=== PATIENT | female | born 1960 | race Caucasian/White ===

== ENCOUNTER 2019-08-13 03:31 | Outpatient (CLI) | payer MEDICAID, SELFPAY ==
[2019-08-13 14:10] LABS: HCT 42.9 % (36.0-46.0); HGB 13.9 g/dL (12.0-15.5); Mean Corp. HGB Concentration 32.4 g/dL (32.0-36.0); Mean Corpuscular Hemoglobin 25.5 pg (27.0-33.0); Mean Corpuscular Volume 78.7 fL (80-95); Mean Platelet Volume 9.2 fL (8.0-11.0); Platelet Count 281 x1000/uL (130-400); RBC 5.45 m/cumm (4.00-5.20); RBC Distribution Width 15.2 % (11.7-14.6); White Blood Cell Count 9.36 k/cumm (4.4-10.8)
[2019-08-13 14:32] LABS: Hemoglobin A1C 9.5 % (3.8-5.6)
[2019-08-13 16:55] LABS: ALT 42 U/L (14-59); AST 23 U/L (15-37); Albumin 3.6 g/dL (3.4-5.0); Alkaline Phosphatase 90 U/L (46-116); Anion Gap 7.2 mmol/L (3-11); BUN 20 mg/dL (7-18); Bilirubin, Total 0.4 mg/dL (0.2-1.0); CO2 28.8 mmol/L (21.0-32.0); CREATININE 0.99 mg/dL (0.55-1.02); Calcium 9.3 mg/dL (8.5-10.1); Calculated LDL 222 mg/dL (<100); Chloride 103 mmol/L (98-107); Cholesterol 281 mg/dL (<200); Estimated GFR 57.22 (mL/min/1.73m2); Glucose 164 mg/dL (74-106); HDL Cholesterol 34 mg/dL (40-60); Potassium 4.2 mmol/L (3.5-5.1); Sodium 139 mmol/L (136-145); Total Protein 7.6 g/dL (6.4-8.2); Triglyceride 126 mg/dL (<150)
[2019-08-14 12:04] LABS: Hepatitis B Surface Ag Negative (Negative)
[2019-08-14 13:22] LABS: HIV-1/2 Ag & Ab Screen Negative (Negative); Hep A Total Ab w Rflx IgM Negative (Negative); Hep B Core Antibody Negative (Negative)
[2019-08-14 13:35] LABS: Hepatitis C Ab w Rflx HCV PCR Reactive (Negative)
[2019-08-17 15:17] LABS: HCV RNA Qualitative Detected (Undetected)
== END 2019-08-13 03:51 ==
DX: E11.9 Type 2 diabetes mellitus without complications (principal); B19.20 Unspecified viral hepatitis C without hepatic coma; Z79.4 Long term (current) use of insulin; Z11.4 Encounter for screening for human immunodeficiency virus [HIV]
CPT/HCPCS: 80053; 80061; 85027; 86704; 86709; 86803; 87340; 87389; 87522; 83036

== ENCOUNTER 2019-08-17 15:54 | Outpatient (CLI) | payer MEDICAID, SELFPAY ==
--- NOTE | 2019-08-17 | DI.MAMMO_ITS ---
EXAM: MAMMO SCREENING CLINICAL HISTORY: SCREENING, Z12.39 TECHNIQUE: Mammograms were interpreted according to the usual protocol including computer analysis w [employer] CAD system, tomosynthesis and C-view imaging. COMPARISON: FINDINGS: The breasts are of moderate density with fairly symmetrical distribution of fibroglandular tissue. N o dominant mass or clumped microcalcification is identified in either breast. Today's examination is a baseline examination. IMPRESSION: No specific evidence of malignancy at this time. Routine screening examinations are suggested at yea rly intervals in this age group according to the ACS ACR guidelines. BI-RADS Cat 1 - Negative: Breast Density - Category B - Scattered areas of fibroglandular density:
== END 2019-08-17 16:14 ==
PROVIDERS: Visit Provider Nurse Practitioner Family
DX: Z12.31 Encounter for screening mammogram for malignant neoplasm of breast (principal)
CPT/HCPCS: 77063; 77067

== ENCOUNTER 2019-09-16 17:55 | Outpatient (REF) | payer MEDICAID, SELFPAY ==
[2019-09-20 05:19] LABS: SARS-CoV-2 RNA Undetected (Undetected); SARS-CoV-2 Specimen Source Nasopharynx
== END 2019-09-16 18:15 ==
LOC: NCHCN 17:55
PROVIDERS: PCP Nurse Practitioner Family; Visit Provider Nurse Practitioner Family
DX: Z20.828 Contact with and (suspected) exposure to other viral communicable diseases (principal)
CPT/HCPCS: U0003

== ENCOUNTER 2019-10-13 12:02 | Emergency (ER) | payer MEDICAID, SELFPAY | END 2019-10-13 12:22 | PROVIDERS: PCP Nurse Practitioner Family | DX: Z53.21 Procedure and treatment not carried out due to patient leaving prior to being seen by health care provider (principal) ==

== ENCOUNTER 2019-10-22 07:32 | Inpatient (IN) | payer MEDICAID, SELFPAY ==
[2019-10-22] VITALS (8 sets, daily range): BP systolic 135–163; BP diastolic 53–94; PULSE 78–89; RESP 16–19; TEMP 36.3–37.4; O2SAT 93–98
[2019-10-22] MEDS: Normal Saline 1,000 ML 1000 ML IV (08:29)
[2019-10-22] MEDS: Dextrose 50%-Water 25 GM/50 ML SYR IVP (08:30)
--- NOTE | 2019-10-22 08:30 | DI.RAD_ITS ---
EXAM: XR HIP LT COMPLETE AP PELVIS CLINICAL HISTORY: History of spacer, pain, weakness TECHNIQUE: COMPARISON: CR RT HIP COMPLETE AP PELVIS from 04/29/2014 FINDINGS: Two views were obtained. There is hip joint replacement in position on the left. Note is made of hi gh density material which may be osteophytic or which could represent cement projected superior to th e greater trochanter. If there is a clinical suspicion of disruption of the acetabular component, ad ditional evaluation with CT may be considered. This finding is new since prior radiographs of 2014. Moderate degenerative changes of the right hip noted. IMPRESSION:
[2019-10-22 08:32] LABS: Abs Immature Grans 0.04 10^3/uL (0.0-0.06); Absolute Basophil Count 0.04 10^3/uL (0.0-0.2); Absolute Eosinophil Count 0.02 10^3/uL (0.0-0.7); Absolute Lymphocyte Count 1.92 10^3/uL (1.2-3.4); Absolute Monocyte Count 0.73 10^3/uL (0.1-0.8); Basophils % 0.3; Eosinophils % 0.2; HCT 46.4 % (36.0-46.0); HGB 14.5 g/dL (11.2-15.7); Immature Grans % 0.3; MCH 25.1 pg (27.0-33.0); MCHC 31.3 % (32.0-36.0); MCV 80.3 fL (80-95); MPV 9.4 fL (8.0-11.0); Monocytes % 6.1; Neutrophils % 77.1; Nucleated RBC 0 %; Platelet Count 228 10^3/uL (130-400); RBC 5.78 10^6/uL (3.93-5.22); RDW 14.6 % (11.7-14.6); RDW-SD 42.4 fL; WBC 11.97 10^3/uL (4.4-10.8)
[2019-10-22 08:38] LABS: Absolute Neutrophil Count 9.23 10^3/uL (1.2-6.7)
--- NOTE | 2019-10-22 08:45 | DI.CT_ITS ---
EXAM: CT LOWER EXTREMITY LT WO CLINICAL HISTORY: Question of fracture on plain films TECHNIQUE: COMPARISON: No exams were available for comparison FINDINGS: CT examination of the left hip was performed without contrast administration. There is a hip joint r eplacement position. There are multiple fragments of high attenuation material which appear to repre sent fragments of cement probably from femoral component of the prosthesis. The largest fragment jane sures about 30 x 14 millimeters in diameter on coronal imaging and is located superior and medial to the greater trochanter. IMPRESSION: Fragmentation of cement material as described above which lies predominantly in the soft tissue super ior to the femoral neck region.
[2019-10-22 08:55] LABS: ALT 45 U/L (14-59); AST 56 U/L (15-37); Albumin 3.5 g/dL (3.4-5.0); Alkaline Phosphatase 85 U/L (46-116); Anion Gap 9.1 mmol/L (3-11); BUN 14 mg/dL (7-18); Bilirubin, Total 0.4 mg/dL (0.2-1.0); CO2 28.9 mmol/L (21.0-32.0); CREATININE 0.76 mg/dL (0.55-1.02); Calcium 9.2 mg/dL (8.5-10.1); Chloride 103 mmol/L (98-107); Glucose 68 mg/dL (74-106); Potassium 3.4 mmol/L (3.5-5.1); Sodium 141 mmol/L (136-145)
[2019-10-22 08:56] LABS: Creatine Kinase 1857 U/L (26-192)
[2019-10-22] MEDS: Buprenorphine/Naloxone 8 mg/2 mg FILM 1 EACH SL (09:04)
--- NOTE | 2019-10-22 09:41 | W.ED.GENAD ---
Discharge Plan Disposition Patient Disposition: OTHER Condition: Serious Discharge Details Chief Complaint: Orthopedic Clinical Impression: Rhabdomyolysis, Weakness, Prosthetic hip implant failure Primary Care Provider: Mary Lou Maddox ED Provider: Min Faulkner Home Meds and New Rx's Prescriptions: No Action insulin aspart U-100 [Novolog PenFill U-100 Insulin] 100 UNIT/ML cartridge 5 units Sub-Q AC Qty: 9 RF: 0 Lantus U-100 Insulin 100 UNIT/ML solution 40 units Sub-Q HS RF: 0 lisinopril 20 MG tablet 20 mg DAILY RF: 0 albuterol sulfate [Ventolin HFA] 60 PUFF HFA aerosol inhaler 2 puff PRN PRNRF: 0 furosemide 20 MG tablet 10 mg PO DAILY RF: 0 gabapentin 300 MG capsule 600 mg PO BID RF: 0 prednisone 20 MG tablet 60 mg PO DAILY 4 Days RF: 0 buprenorphine-naloxone [Suboxone] 8-2 mg Film 1 film SUBLINGUAL DAILY RF: 0 Medical Decision Making This is a 59-year-old female with a history of diabetes, current smoker, hypertension, hyperlipidemia, depression, left spacer, presenting to the ER via EMS for evaluation. She reports that last night her left leg gave out, she slid to the ground but did not fall to the ground. Was too weak to get off the ground, her housemate was unable to help her. She laid on the floor all night, attempted to get up again in the morning but was unsuccessful so subsequently called EMS. She denies recent illness or trauma. She denies headache, visual changes, neck pain, chest pain, shortness of breath, abdominal pain, nausea, vomiting, numbness, tingling, focal weakness. Fingerstick glucose was 75. Patient reports that she has not eaten this morning and she is quite hungry. Clinically she does appear dry. We will give an amp of glucose and then give her a liter of IV fluid. Given her presentation will obtain CBC, CMP, urinalysis, CK for potential rhabdomyolysis as she was lying on the ground all night. Will obtain x-ray of her left hip and pelvis for further evaluation as well. Patient did not take her Suboxone this morning. Suboxone ordered Laboratory values reveal a white count of 11.97 hemoglobin 14.5 hematocrit 46.4 platelet count 220. Sodium 141 potassium 3.4 creatinine 0.76 with a GFR greater than 60. Glucose was 68. As above, patient received an amp of dextrose. Subsequent serial glucose reveals levels in the 200s and 100s. She subjectively reports feeling less weak. LFTs reveal an AST of 56. Urinalysis is clear, small blood, 5-10 red cells but no obvious infection. Patient given a second liter of saline at 150/h as her CPK was elevated at over 1800. X-ray of left hip and pelvis read by radiology as the hip joint replacement is in position on the left. High density material which may be osteophytic or which could represent cement projected superior in the greater trochanter. Consider CT. Given the x-ray findings, will obtain a CT. CT reveals fragmentation of cement material but no obvious bony fracture. Patient was trial ambulated with assistance and using a cane, she did not do well, was unsteady, could not support herself. Did complain of increased left hip pain. I discussed the case with Dr. Bravo who also had a conversation with Dr. Rodriguez. 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 This procedure is something that will need higher level of care. I was able to speak with the patient's orthopedic at [facility], Dr. Nayak. Images were pushed and he was able to compare the images from today versus images at his facility more recently. There was no significant change. 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 He has tried multiple times set her up for a full revision however she has been noncompliant, not active in her own care plan, and until then he will not operate. He does not believe that she requires transfer to his facility as there is no clear indication for emergent orthopedic surgery. After multiple phone calls to specialist, it appears as though the patient does not require emergent surgery for her left hip revision today. With that being said she continues to have generalized weakness, is unsteady using a walker, and does continue to have left hip pain. Laboratory values revealed rhabdomyolysis. I will discuss the case with our hospitalist team for admission. Likely IV hydration, repeat CK, potential PT, and even long-term care placement or rehab may be appropriate. This may allow her to become healthy enough to have the orthopedic surgery. I discussed the case with Dr. Shaw who was agreeable to admission and will write orders. Covid test obtained Of note, patient did have an incident here in the ER. She reported that she wanted to get up, RN helped her at bedside, please see her full note. Patient felt weak and slid toward the ground. There was no true fall, no injury. I do not believe that any additional imaging needs to be obtained secondary to this fall. Patient is now tearful, anxious, stating that she is tired of feeling this way, unable to care for herself adequately. Medical Records Medical records reviewed: Yes I reviewed the patient's medical records. Lab Data Lab results reviewed: Yes I reviewed the patient's lab results. Lab results narrative: Laboratory Tests Range/Units 10/22/19 10/22/19 10/22/19 07:45 07:45 10:20 WBC (4.4-10.8) 10^3/uL 11.97 H RBC (3.93-5.22) 10^6/uL 5.78 H Hgb (11.2-15.7) g/dL 14.5 Hct (36.0-46.0) % 46.4 H MCV (80-95) fL 80.3 MCH (27.0-33.0) pg 25.1 L MCHC (32.0-36.0) % 31.3 L RDW (11.7-14.6) % 14.6 Plt Count (130-400) 10^3/uL 228 MPV (8.0-11.0) fL 9.4 Immature Gran % 0.3 Neutrophils % 77.1 Lymphocytes % 16.0 Monocytes % 6.1 Eosinophils % 0.2 Basophils % 0.3 Absolute Neutrophils (1.2-6.7) 10^3/uL 9.23 H Absolute Lymphocytes (1.2-3.4) 10^3/uL 1.92 Absolute Monocytes (0.1-0.8) 10^3/uL 0.73 Absolute Eosinophils (0.0-0.7) 10^3/uL 0.02 Absolute Basophils (0.0-0.2) 10^3/uL 0.04 Sodium (136-145) mmol/L 141 Potassium (3.5-5.1) mmol/L 3.4 L Chloride (98-107) mmol/L 103 Carbon Dioxide (21.0-32.0) mmol/L 28.9 Anion Gap (3-11) mmol/L 9.1 BUN (7-18) mg/dL 14 Creatinine (0.55-1.02) mg/dL 0.76 Estimated GFR/1.73 m2 (mL/min/1.73m2) >= 60.00 Glucose (74-106) mg/dL 68 L Calcium (8.5-10.1) mg/dL 9.2 Total Bilirubin (0.2-1.0) mg/dL 0.4 AST (15-37) U/L 56 H ALT (14-59) U/L 45 Alkaline Phosphatase (46-116) U/L 85 Creatine Kinase (26-192) U/L 1857 H Total Protein (6.4-8.2) g/dL 8.0 Albumin (3.4-5.0) g/dL 3.5 Urine Color (Yellow) Yellow Urine Clarity (Clear) Clear Urine pH (5-8) 6.0 Ur Specific [place] (1.005-1.025) 1.025 Urine Protein (Negative) mg/dL Negative Urine Ketones (Negative) mg/dL Negative Urine Blood (Negative) Small H Urine Nitrite (Negative) Negative Urine Bilirubin (Negative) Negative Urine Urobilinogen (Up TO 0.2) EU/dL 0.2 Ur Leukocyte Esterase (Negative) Negative Urine RBC (0-2) HPF 5-10 H Urine WBC (0-5) HPF Negative Ur Epithelial Cells (Negative) HPF Few Urine Crystals (Negative) HPF Negative Urine Bacteria (Negative) HPF Negative Urine Casts (Negative) LPF 0-2 fine granular Urine Mucus (Negative) Moderate Urine Other (Negative) Rare renal Ur Culture Indicated? No Urine Glucose (Negative) mg/dL 250 H HPI General Mode of arrival: EMS. Date/Time Provider Initiated Documentation: 10/22/19 07:41. Limitations to Documentation: no limitations. Information obtained by: patient and EMS. HPI Narrative: This is a 59-year-old female who presents via EMS with a history of diabetes, current smoker, hypertension, hyperlipidemia, depression, history of IV drug use, currently takes Suboxone, left hip spacer 4 years ago at [facility]. She reports that yesterday evening she was attempting to get out of bed, her left leg gave out on her which it often does and she slipped from the bed down to the ground. Did not fall, denies any trauma. Her housemate attempted to get her up but she reports that she felt generally weak and could not get up with assistance so she decided to stay on the floor. This morning they tried to get her up again, she felt weak once again, so this time EMS was called. She denies any recent illness or trauma. Denies headache, neck pain, chest pain, shortness of breath no abdominal pain, nausea, vomiting, dysuria, numbness, tingling, weakness. She reports that her pain in her left hip appears to be near baseline now, mild at rest, moderate with movement or weightbearing. Typically ambulates with a walker. Related Data Home Medications Medication Instructions Recorded Confirmed insulin aspart U-100 [Novolog 5 units SUB-Q AC #9 ml 06/19/13 10/22/19 PenFill U-100 Insulin] Lantus U-100 Insulin 40 units SUB-Q HS 06/29/14 10/22/19 lisinopril 20 mg DAILY 07/31/14 10/22/19 albuterol sulfate [Ventolin HFA] 2 puff PRN PRN 02/20/16 10/22/19 furosemide 10 mg PO DAILY 12/02/16 10/22/19 gabapentin 600 mg PO BID 12/02/16 10/22/19 prednisone 60 mg PO DAILY 4 Days tab 12/02/16 10/22/19 buprenorphine-naloxone [Suboxone] 1 film SUBLINGUAL DAILY 10/22/19 10/22/19 Previous Rx's Medication Instructions Recorded insulin aspart U-100 [Novolog 5 units SUB-Q AC #9 ml 06/19/13 PenFill U-100 Insulin] prednisone 60 mg PO DAILY 4 Days tab 12/02/16 Allergies Allergy/AdvReac Type Severity Reaction Status Date / Time No Known Allergies Allergy Unverified 10/22/19 07:34 General Stated Complaint: Orthopedic DIEGO: 3 Review of Systems Constitutional Constitutional: Denies fatigue, Denies fever(s) and Reports weakness (Generalized) Eyes Eyes: Denies change in vision ENT Ears, Nose, Mouth, and Throat: Denies neck pain and Denies sore throat Cardiovascular Cardiovascular: Denies chest pain and Denies dyspnea Respiratory Respiratory: Denies cough and Denies dyspnea Gastrointestinal Gastrointestinal: Denies abdominal pain, Denies nausea and Denies vomiting Musculoskeletal Musculoskeletal: Reports arthralgias, Denies neck pain, Denies numbness and Denies tingling Integumentary/Breasts Skin/Breast: Denies rash Neurologic Neurologic: Denies numbness, Denies tingling and Reports weakness (Generalized) Endocrine Endocrine: Denies fatigue [facility] Social History Smoking/Tobacco Use Status: Current every day Tobacco Type: cigarettes Alcohol Intake: never Drug use: Current Sobriety Do you feel safe at home: Yes Do you feel safe in your relationship?: Yes Exam Const General: cooperative, healthy appearing, comfortable and no acute distress Orientation: alert, awake, oriented to person, oriented to place and oriented to time (Unsure of date) HENMT Head: normal to inspection, normocephalic and atraumatic Face and sinus: normal facial exam Mouth: moist mucous membranes abnormal (Dry) Throat: posterior oropharynx normal Eyes Conjunctivae: conjunctivae normal Sclera: sclerae normal Neck Neck: normal visual inspection, full ROM, trachea midline, supple and nontender Resp Effort & Inspection: normal respiratory effort and able to speak in complete sentences Auscultation: clear to auscultation bilaterally Cardio Rate: regular rate Rhythm: regular rhythm GI Palpation: soft and nontender Back/Spine/Pelvis Back: No back tenderness Skin General skin exam: no rashes or lesions noted Neuro General: patient alert, patient awake, oriented Patient Orientation: Person, Place and Time (Unsure of date), moves all extremities and no focal motor deficits Cranial Nerves: CN's II-XI intact bilaterally Cognition: normal cognition Speech: speech normal Motor: muscle tone normal throughout and strength 5/5 throughout Sensory Exam: no sensory deficits noted Extrem General: normal to inspection, capillary refill normal, no pedal edema and no calf tenderness Right upper extremity: normal to inspection, full ROM and normal capillary refill Left upper extremity: normal to inspection, full ROM and normal capillary refill Right lower extremity: normal to inspection, full ROM and normal capillary refill Left lower extremity: normal to inspection, normal capillary refill and hip/thigh Details: normal to inspection, tenderness Location: of the hip (Diffusely) Location: laterally and anteriorly and abnormal ROM (Decreased secondary to discomfort); no swelling and no ecchymosis Psych Appearance: disheveled Mental Status: mental status grossly normal Affect: sad Course Vital Signs Vital signs: Vital Signs Temperature 36.8 C 10/22/19 07:28 Pulse 88 10/22/19 07:28 Respiratory Rate 18 10/22/19 07:28 Blood Pressure 163/80 H 10/22/19 07:28 Pulse Oximetry 97 10/22/19 07:28 Temperature 36.8 C 10/22/19 07:28 Temperature Source Temporal Artery Scan 10/22/19 07:28 Pulse 88 10/22/19 07:28 Respiratory Rate 18 10/22/19 07:28 Respiratory Effort Non-Labored 10/22/19 07:36 Blood Pressure 163/80 H 10/22/19 07:28 Blood Pressure Position Supine 10/22/19 07:28 Pulse Oximetry 97 10/22/19 07:28 Oxygen Delivery Method Room Air 10/22/19 07:28 Oxygen Flow Rate 0 10/22/19 07:28 Pain Level 8 10/22/19 07:28 Lab/Test Results Lab/Test Results: Laboratory Tests Range/Units 10/22/19 10/22/19 07:45 07:45 WBC (4.4-10.8) 10^3/uL 11.97 H RBC (3.93-5.22) 10^6/uL 5.78 H Hgb (11.2-15.7) g/dL 14.5 Hct (36.0-46.0) % 46.4 H MCV (80-95) fL 80.3 MCH (27.0-33.0) pg 25.1 L MCHC (32.0-36.0) % 31.3 L RDW (11.7-14.6) % 14.6 Plt Count (130-400) 10^3/uL 228 MPV (8.0-11.0) fL 9.4 Immature Gran % 0.3 Neutrophils % 77.1 Lymphocytes % 16.0 Monocytes % 6.1 Eosinophils % 0.2 Basophils % 0.3 Absolute Neutrophils (1.2-6.7) 10^3/uL 9.23 H Absolute Lymphocytes (1.2-3.4) 10^3/uL 1.92 Absolute Monocytes (0.1-0.8) 10^3/uL 0.73 Absolute Eosinophils (0.0-0.7) 10^3/uL 0.02 Absolute Basophils (0.0-0.2) 10^3/uL 0.04 Sodium (136-145) mmol/L 141 Potassium (3.5-5.1) mmol/L 3.4 L Chloride (98-107) mmol/L 103 Carbon Dioxide (21.0-32.0) mmol/L 28.9 Anion Gap (3-11) mmol/L 9.1 BUN (7-18) mg/dL 14 Creatinine (0.55-1.02) mg/dL 0.76 Estimated GFR/1.73 m2 (mL/min/1.73m2) >= 60.00 Glucose (74-106) mg/dL 68 L Calcium (8.5-10.1) mg/dL 9.2 Total Bilirubin (0.2-1.0) mg/dL 0.4 AST (15-37) U/L 56 H ALT (14-59) U/L 45 Alkaline Phosphatase (46-116) U/L 85 Creatine Kinase (26-192) U/L 1857 H Total Protein (6.4-8.2) g/dL 8.0 Albumin (3.4-5.0) g/dL 3.5
[2019-10-22 10:30] LABS: Bilirubin Negative (Negative); Blood Small (Negative); Clarity Clear (Clear); Glucose 250 mg/dL (Negative); Ketones Negative (Negative); Leukocyte Esterase Negative (Negative); Nitrite Negative (Negative); Specific Gravity 1.025 (1.005-1.025); Urobilinogen 0.2 EU/dL (Up TO 0.2)
[2019-10-22 10:53] LABS: Epithelial Cells Few HPF (Negative); WBC Negative HPF (0-5)
[2019-10-22 10:54] LABS: Bacteria Negative HPF (Negative); C & S Indicated? No; Casts 0-2 Fine Granular LPF (Negative); Crystals Negative HPF (Negative); Mucus Moderate (Negative); Other Cells Rare Renal (Negative)
[2019-10-22] MEDS: Normal Saline 250 ML IV (11:11)
--- NOTE | 2019-10-22 13:03 | NUR.NOTE ---
10/22/19 1240- Patient stated had to go to bathroom, was able to stand and transfer to commode. While standing with this nurse at the side of stretcher, on left side, patient appeared unsteady and was advised by the RN to sit back down on the stetcher. Pt listed to right side and lost her balance and slid to floor on right side. Patient did not hit head. Assisted onto back board by ED staff, seen by PA within 2 minutes of fall. [facility] V[facility].
--- NOTE | 2019-10-22 14:02 | HPE_ITS ---
Date of service: 10/22/19 Time of Service: 14:03 Assessment and Plan Assessment and plan (1) Diabetes mellitus type 2, insulin dependent: Status: Acute Assessment and plan: Cont basal / bolus insulin. Add sliding scale corrective insulin dosing. Controlled carb diet. A1c was 9.5 on 08/13/2019; previously 11.4 in July of 2017. (2) Prosthetic hip implant failure: Status: Acute Assessment and plan: Pain control; prn Tramadol. PT/OT Needs to demonstrate compliance before orthopedic surgeon will revise the hip. She is willing to proceed to SNF when ready for d/c if needed. (3) Rhabdomyolysis: Status: Acute Assessment and plan: CK 1857 > 2749. IV fluids given in ED. Cont NS at 100ml/hr. No h/o CHF. Takes lasix for pedal edema; secondary to venous insufficiency? Renal function is good. (4) Depressive disorder: Status: Chronic Assessment and plan: Not on any antidepressants. Affect currently appropriate (5) Hyperlipidemia: Status: Chronic Assessment and plan: Not on an lipid lower agent. No recent cholesterol values in chart. Lipid profile in AM (6) Hypertension: Status: Chronic Assessment and plan: Currently SBP in the 140-150's. Cont Lisinopril 20mg daily. monitor (7) Tobacco abuse: Status: Chronic Assessment and plan: Cessation encouraged. Nicoderm patch. History of Present Illness History of Present Illness Chief Complaint: Weakness in LLE, Fall P Narrative: This is a 59 yo female with a PMH of DM2 insulin requiring, HTN, HLD, obesity, tobacco abuse syndrome, depression. She presented to the ED after sliding to the ground from her bed the night before. She states he Left leg gave out. No fall. She was too weak to get up and was on the ground for 8-9 hours. Her housemate was not able to help her up and EMS was called. No recent illness; no cough, F/C, N/V/abd pain, diarrhea. No SHEPHERD, facial droop, speech difficulty, numbness/tingling of an ext. Her CK was 1857 in the ED. Creatinine 0.76. Initial glucose was 75, then increased to the 100-200's. Xray of L hip/pelvis showed the L hip spacer was in position. There was highdensity material that was posiibly an osteophyte or cement fragment. CT performed and verified fragmentation of cement material. No betty fracture. ED physician spoke with Dr. Nayak, orthopedic surgeon at [facility] that follows the patient. She was seen there several weeks ago. He compared the current images to those obtained at the previous appointment. No clear indication for emergent surgery. He also stated that he had tried to arrange full revision but she had been noncompliant, not active in her care plan. Admitted for management of the rhabdomyolysis and pain/weakness of the L hip. Pain in the L groin that is chronic. She states she deals with it and doesn't take any pain medications routinely. No narcotics. Review of Systems All systems reviewed & are unremarkable except as noted in HPI and below PFSH Social History Smoking/Tobacco Use Status: Current every day Tobacco Type: cigarettes Alcohol Intake: never Drug use: Current Sobriety Do you feel safe at home: Yes Do you feel safe in your relationship?: Yes Meds Home Medications and Allergies Home Medications Medication Instructions Recorded Confirmed Type insulin aspart U-100 [Novolog 5 units SUB-Q AC #9 ml 06/19/13 10/22/19 Rx PenFill U-100 Insulin] Lantus U-100 Insulin 62 units SUB-Q HS 06/29/14 10/22/19 History albuterol sulfate [Ventolin HFA] 2 puff PRN PRN 02/20/16 10/22/19 History furosemide 20 mg PO DAILY 12/02/16 10/22/19 History gabapentin 600 mg PO BID 12/02/16 10/22/19 History buprenorphine-naloxone [Suboxone] 1 film SUBLINGUAL DAILY 10/22/19 10/22/19 History exenatide microspheres [Bydureon] 2 mg SUBCUT QWEEK 10/22/19 10/22/19 History fluticasone propionate 2 spray INTRANASAL DAILY 10/22/19 10/22/19 History lisinopril 20 mg PO DAILY 10/22/19 10/22/19 History Allergies Allergy/AdvReac Type Severity Reaction Status Date / Time No Known Allergies Allergy Unverified 10/22/19 07:34 Exam Const General: cooperative, no acute distress and disheveled Orientation: alert and oriented x3 HENMT Head: atraumatic Eyes Sclera: sclerae normal Pupils: PERRL Resp Effort & Inspection: normal respiratory effort Auscultation: clear to auscultation bilaterally and diminished lung sounds Cardio Rate: regular rate Rhythm: regular rhythm Heart Sounds: S1 normal and S2 normal GI Inspection: normal to inspection and obesity Palpation: soft Auscultation: normal bowel sounds Skin General skin exam: no rashes or lesions noted Wounds: no wounds Neuro General: patient alert, patient oriented x3 and moves all extremities (pain with movment of L hip) Cognition: normal cognition Speech: speech normal Extrem General: normal to inspection and no clubbing, cyanosis or edema Results Labs Result diagrams: 10/22/19 07:45 10/22/19 07:45 Labs: Laboratory Results - last 24 hr 10/22/19 10/22/19 10/22/19 07:45 07:45 10:20 WBC 11.97 H RBC 5.78 H Hgb 14.5 Hct 46.4 H MCV 80.3 MCH 25.1 L MCHC 31.3 L RDW 14.6 Plt Count 228 MPV 9.4 Immature Gran % 0.3 Neutrophils % 77.1 Lymphocytes % 16.0 Monocytes % 6.1 Eosinophils % 0.2 Basophils % 0.3 Absolute Neutrophils 9.23 H Absolute Lymphocytes 1.92 Absolute Monocytes 0.73 Absolute Eosinophils 0.02 Absolute Basophils 0.04 Sodium 141 Potassium 3.4 L Chloride 103 Carbon Dioxide 28.9 Anion Gap 9.1 BUN 14 Creatinine 0.76 Estimated GFR/1.73 m2 >= 60.00 Glucose 68 L Calcium 9.2 Total Bilirubin 0.4 AST 56 H ALT 45 Alkaline Phosphatase 85 Creatine Kinase 1857 H Total Protein 8.0 Albumin 3.5 Urine Color Yellow Urine Clarity Clear Urine pH 6.0 Ur Specific [place] 1.025 Urine Protein Negative Urine Ketones Negative Urine Blood Small H Urine Nitrite Negative Urine Bilirubin Negative Urine Urobilinogen 0.2 Ur Leukocyte Esterase Negative Urine RBC 5-10 H Urine WBC Negative Ur Epithelial Cells Few Urine Crystals Negative Urine Bacteria Negative Urine Casts 0-2 fine granular Urine Mucus Moderate Urine Other Rare renal Ur Culture Indicated? No Urine Glucose 250 H Last Vital Signs Temp 36.9 C 10/22/19 13:31 Pulse 87 10/22/19 13:31 Resp 16 10/22/19 13:31 BP 142/87 H 10/22/19 13:31 Pulse Ox 97 10/22/19 13:31 COVID-19 Screening Have you,or household,traveled outside [place] in last 14 days?: No Had IN PERSON contact w/suspected or confirmed C-19 person: No
[2019-10-22 14:03] LABS: Creatine Kinase 2749 U/L (26-192)
--- NOTE | 2019-10-22 14:23 | PHACLINREV_ITS ---
Pharmacy Admission Review - Admission Clinical Review (Last Reviewed 10/22/19 @ 10:34 by SOLEDAD Kevin) Diabetes mellitus type 2, insulin dependent (Acute) Rhabdomyolysis (Acute) Weakness (Acute) Prosthetic hip implant failure (Acute) No Known Allergies Allergy (Unverified 10/22/19 07:34) Height 5 ft 4 in Weight 78.018 kg - Renal Dosing Renal Dosing: BUN 14 mg/dL (7-18) 10/22/19 07:45 Creatinine 0.76 mg/dL (0.55-1.02) 10/22/19 07:45 Medications needing adjustments: Reviewed (CrCl ~79.5 mL/min, current meds okay) - Anticoagulation Anticoagulation: Hgb 14.5 g/dL (11.2-15.7) 10/22/19 07:45 Hct 46.4 % (36.0-46.0) H 10/22/19 07:45 Plt Count 228 10^3/uL (130-400) 10/22/19 07:45 Creatinine 0.76 mg/dL (0.55-1.02) 10/22/19 07:45 DVT Prohphylaxis: Reviewed Medications: Enoxaparin Therapeutic Anticoagulation: N/A - Opiate Usage Evaluate Pain Scale/Pains Meds: Reviewed (Tramadol) - Relevant Labs Sodium 141 mmol/L (136-145) 10/22/19 07:45 Potassium 3.4 mmol/L (3.5-5.1) L 10/22/19 07:45 Chloride 103 mmol/L (98-107) 10/22/19 07:45 Electrolytes, C-Reactive P, ESR: Reviewed (K 3.4, WBC 11.97) - DM Control DM Control: Glucose 68 mg/dL (74-106) L 10/22/19 07:45 Finger Stick Blood Glucose 89 Finger Stick Blood Glucose 101 Insulin Dosing: Reviewed (Insulin glargine, insulin aspart (SS and meal time), glucose low at 68) - Heart Failure/ID EF%, ATIYA's, B-Blockers, Diuretics: N/A - BP Control BP Control: Blood Pressure [Left Arm] 155/79 Blood Pressure 146/79 Blood Pressure 142/87 Blood Pressure 151/94 Blood Pressure 156/93 Blood Pressure 163/80 If elevated: Reviewed (BP has been consistently elevated since admission) - Qtc Review If Elevated: N/A (No recent EKG labs) - IV to PO Switch IV Medications: Reviewed - Home Meds Home Med List reviewed: Reviewed (Currently working on the patients at home med list. Patient states she takes 20mg daily of lisinopril. The list from her PCP says 5 mg and there is no record on the external med list of her picking up any lisinopril in the last year. Per nurse at the PCP office, they are not currently prescribing her any lisinopril) Relevent Home Meds Not ordered & why?: Furosemide, albuterol HFA - Current meds Current Medication Order Review: Reviewed - Comments Comments/Follow Ups: Monitor K, BP, glucose and WBC. Watch for any med changes. Patients home med list was updated using a list from her PCP (other than the lisinopril). Per MD patient will most likely need PT and possible adjunct faculty for medical terminology care or rehab.
[2019-10-22] MEDS: Normal Saline 1,000 ML 100 ML IV ×2 (15:00→23:59)
[2019-10-22] MEDS: Enoxaparin 40 MG/0.4 ML SYR SC (16:46)
[2019-10-22] MEDS: Gabapentin 300 MG CAP 600 MG PO (19:35)
[2019-10-22] MEDS: traMADol 50 MG TAB PO (19:35)
[2019-10-22] MEDS: Nicotine 21 MG/24 HR PATCH TD (19:38)
[2019-10-22] MEDS: Insulin Glargine 300 UNITS/3 ML PEN 62 UNITS SC (22:10)
[2019-10-23 05:43] VITALS: BP 164/79; PULSE 76; RESP 18; TEMP 36.8; O2SAT 96
[2019-10-23 06:47] LABS: Abs Immature Grans 0.03 10^3/uL (0.0-0.06); Absolute Basophil Count 0.03 10^3/uL (0.0-0.2); Absolute Eosinophil Count 0.34 10^3/uL (0.0-0.7); Absolute Lymphocyte Count 4.34 10^3/uL (1.2-3.4); Absolute Monocyte Count 0.52 10^3/uL (0.1-0.8); Absolute Neutrophil Count 5.41 10^3/uL (1.2-6.7); Basophils % 0.3; Eosinophils % 3.2; HGB 12.8 g/dL (11.2-15.7); Immature Grans % 0.3; Lymphocytes % 40.7; MCH 25.3 pg (27.0-33.0); MCHC 31.2 % (32.0-36.0); MCV 81.2 fL (80-95); MPV 9.5 fL (8.0-11.0); Monocytes % 4.9; Neutrophils % 50.6; Nucleated RBC 0 %; Platelet Count 210 10^3/uL (130-400); RBC 5.05 10^6/uL (3.93-5.22); RDW 14.4 % (11.7-14.6); RDW-SD 42.3 fL; WBC 10.67 10^3/uL (4.4-10.8)
[2019-10-23 07:09] VITALS: BP 149/90; PULSE 71; RESP 17; TEMP 37.2; O2SAT 94
[2019-10-23 07:11] LABS: ALT 41 U/L (14-59); AST 57 U/L (15-37); Albumin 2.9 g/dL (3.4-5.0); Alkaline Phosphatase 70 U/L (46-116); Anion Gap 7.2 mmol/L (3-11); BUN 12 mg/dL (7-18); Bilirubin, Total 0.5 mg/dL (0.2-1.0); CO2 26.8 mmol/L (21.0-32.0); CREATININE 0.74 mg/dL (0.55-1.02); Calcium 8.3 mg/dL (8.5-10.1); Chloride 106 mmol/L (98-107); Glucose 59 mg/dL (74-106); Magnesium 1.8 mg/dL (1.8-2.4); Potassium 3.4 mmol/L (3.5-5.1); Sodium 140 mmol/L (136-145); TSH (W/Ref FT4) 1.61 uIU/mL (0.36-3.74); Total Protein 6.8 g/dL (6.4-8.2)
[2019-10-23 07:23] LABS: Creatine Kinase 1420 U/L (26-192)
[2019-10-23 07:36] LABS: Calculated LDL 159 mg/dL (<100); Cholesterol 212 mg/dL (<200); HDL Cholesterol 30 mg/dL (40-60); Triglyceride 119 mg/dL (<150)
[2019-10-23] MEDS: Lisinopril 20 MG TAB PO (07:44)
[2019-10-23] MEDS: Buprenorphine/Naloxone 8 mg/2 mg FILM 1 EACH SL (07:44)
[2019-10-23] MEDS: Gabapentin 300 MG CAP 600 MG PO ×2 (07:44→19:39)
[2019-10-23] MEDS: Polyethylene Glycol 3350 17 GM PACKET PO (07:44)
[2019-10-23 08:20] VITALS: O2SAT 94
[2019-10-23 08:21] LABS: COVID-19 RT-PCR UVMMC Result Negative (Negative)
--- NOTE | 2019-10-23 08:24 | INITIAL_ITS ---
- If Service Date Differs Date of service: 10/23/19 Time of Service: 15:55 Care Management Initial Assess REASON FOR HOSPITALIZATION:: Rhabdomyolysis PAST MEDICAL HISTORY/PAST SURGICAL HISTORY:: DM Type 2 insulin dependent, prosthetic hip implant failure, Hip Spacer x4 years, Rhabdomyolsis, Depressive disorder, Hyperlipidemia, Hypertension, Tobacco Abuse PREVIOUS FUNCTIONAL STATUS/SOCIAL/FAMILY SUPPORTS:: Saundra resides in [facility] with her significant other, Denzel, she reports moving to [place] to be Denzel 22 years ago. The rest of her family resides in [place], where she was born and raised. Her daughter, Nasra and sister reside outside of [place], and Saundra is in contact with them almost daily. Saundra has been increasingly struggling with ADLs and is currently interested in attending SNF prior to returning home. CURRENT FUNCTIONAL STATUS:: Saundra was sitting up in bed when CM met with her, she was friendly in interaction and forthcoming with information. She became emotional when speaking of her family and her current level of functioning. ADVANCE DIRECTIVES:: None on file at [facility]. Has patient been provided with info about the portal/API?: Yes Did the patient sign up for the portal?: No CODE STATUS:: Full Code INSURANCE COVERAGE / FINANCIAL ISSUES:: Medicaid CURRENT HOME/COMMUNITY SERVICES/EQUIPMENT:: Vic MCDOWELL PRIMARY CARE PHYSICIAN:: Mary Lou Maddox POTENTIAL DISCHARGE NEEDS:: SNF coordination, versus SWB PATIENT/FAMILY EDUCATION NEEDS:: Review discharge instructions, discuss Ask Me Three. ANTICIPATED BARRIERS TO DISCHARGE:: Bed availability; barriers to SNF: suboxone maintenance and limited SNF insurance. TRANSPORTATION:: TBD by disposition and level of functioning. PLAN:: Saundra will require SNF stay prior to returning home. She will continue to work with PT and will likely enter SWB1 at [facility] due to barriers to SNF: CM will resume coordination after the weekend, and continues to follow.
[2019-10-23] MEDS: Potassium Chloride 20 MEQ TABCR 40 MEQ PO (08:37)
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
--- NOTE | 2019-10-23 10:04 | PT.INIE ---
Date of service: 10/23/19 Time of Service: 10:04 PT Notes Visit Reasons: RHABDOMYOLYSIS Physical Therapy Inpatient Initial Evaluation Date: 10/23/2019 Referring Doctor: Samuel Shaw MD PT Orders: PT CONSULT: Eval/Treat Precautions: Fall. Standard. WBAT on left LE per hospitalist. Patient Profile/Admitting Diagnosis: Saundra is a 59-year-old female who presented to the ED on 10/22/2019 with a chief complaints of weakness in the left LE and recent fall. Patient is diagnosed with rhabdomyolysis, prostatic implant failure status post left hip spacer implant in situ, and poorly managed diabetes mellitus type II. PMHX: Medical history Anxiety Depression TYpe II DM Tobacco use History of intravenous drug use Hypertension Sciatica History of left hip infections Surgical History Tonsillectomy Pilonidal cyst Hip surgery Social History/Home Situation: Lives with significant other in an apartment complex with a ramp to enter. Independent with all mobility ADL performance using the front wheeled walker. Manages meals, grocery shopping, and laundry with significant other. Equipment Owned/DME: Front wheeled walker Subjective: Saundra reports 8/10 pain in the left hip at rest and with movement. She states although her orthopedic doctor at [facility] told her that she can put full weight on the left side, that she has gotten used to putting partial weight on her left LE due to pain. She expresses that she had a disagreement over the phone with her daughter which made her very upset right before PT visit. She understands the importance of consistent rehab for that left hip prior to surgery and of progressive strengthening for both LE to reduce fall risk. She states that she is willing to go to a residential facility as long as it will not be at the previous SNF that her significant other went to previously. She adds that her significant other is not well himself and will not be able to physically assist her all the time. Objective: General Observation: Appears to be in distress over previous phone conversation with her daughter. IV in the right brachial area. Obese. Mental Status: Patient is alert and oriented as to place, person, and time. Pain: 8/10 in the hip at rest and with weight bearing. ROM: Right Upper Extremity: Shoulder Flexion WFL. Shoulder abduction WFL. Elbow flexion WFL. Wrist flexion WFL. Opening and closing of hand WFL. Left Upper Extremity: Shoulder Flexion WFL. Shoulder abduction WFL. Elbow flexion WFL. Wrist flexion WFL. Opening and closing of hand WFL. Right Lower Extremity: Hip flexion WFL. Hip abduction WFL. Knee flexion WFL. Ankle dorsiflexion WFL. Ankle plantarflexion WFL. Left Lower Extremity: Hip flexion to 15 degrees of hip flexion while seated at edge of bed. Hip abduction WFL. Knee flexion 20 to 110 degrees. Knee extension -20 degrees. Ankle dorsiflexion WFL. Ankle plantarflexion WFL. Strength: Right Upper Extremity: Shoulder flexors 5/5. Shoulder abductors 5/5. Elbow flexors 5/5. Elbow extensors 5/5. Supervisor Finishing Department strong. Left Upper Extremity: Shoulder flexors 5/5. Shoulder abductors 5/5. Elbow flexors 5/5. Elbow extensors 5/5. Supervisor Finishing Department strong. Right Lower Extremity: Hip flexors 5/5. Hip abductors 5/5. Knee flexors 5/5. Knee extensors 5/5. Ankle dorsiflexors 5/5. Ankle plantarflexors 5/5. Left Lower Extremity:Hip flexors 3-/5. Hip abductors 4-/5. Knee flexors 4-/5. Knee extensors 3-/5. Ankle dorsiflexors 5/5. Ankle plantarflexors 5/5. Sensation: Intact as to pain and pressure on bilateral lower extremities. Bed Mobility/Transfers: Rolling contact-guard assist Supine to sit contact-guard assist Sit to supine contact-guard assist Sit to stand minimal assist Stand to sit minimal assist Bed to chair minimal assist Chair to bed minimal assist Gait: Patient tolerated level surface ambulation of 80 feet using front-wheeled walker with toes first gait pattern on the left side, step-to technique due to pain and feeling of instability in the left hip. Step height decreased, step length decreased. Minimal assist provided by PT. Balance: Static Sitting: Normal Dynamic Sitting: Normal Static Standing: Fair Dynamic Standing: Fair Special Tests: Mobility Limitations Standardized Measure [facility] 6 clicks Basic Mobility Inpatient Short Form: Raw Score: 18 CMS Score: 47% deficit Informed Consent/Education: Patient was instructed in purpose of PT consult and plan of care. Assessment: Saundra demonstrates significant functional mobility decline requiring physical assistance and use of a front wheeled walker for all mobility ADL performance, difficulty with walking, impairment with balance, and generalized weakness to BLE due to diagnoses. Saundra is a 59-year-old female who presented to the ED on 10/22/2019 with a chief complaints of weakness in the left LE and recent fall. Patient is diagnosed with rhabdomyolysis, prostatic implant failure status post left hip spacer in situ, and poorly managed diabetes mellitus type II. Without consistent PT services, patient will be at risk for further functional decline, falls, skin breakdown, increased burden of care, and increased risk of re-hospitalization. Patient presents with clinical signs and symptoms consistent with current/admitting diagnoses that have resulted to mobility limitations, gait instability, generalized weakness, and impairment of motor control as demonstrated by the following impairment level findings: 1. Decreased strength to left hip major muscle groups 2. Impaired sitting/standing balance 3. Impaired activity tolerance 4. Limitation of joint range of motion in left hip Impairments are contributing to the following functional limitations: 1. Dependent bed mobility skills 2. Increased dependence with transfers 3. Inability to safely ambulate without assistive device and physical assistance 4. Increase completion time for mobility ADL performance 5. Increased fall risk 6. Inability to negotiate steps alone safely Patient is assessed as a 53700 moderate complexity based on the following: History: 59-year-old female with impairment level findings, functional limitations, and past medical history as indicated above Examination: Demonstrable impairment in strength, balance, and mobility level with underlying impairments and functional limitations as documented above Presentation:Evolving Decision Makin moderate complexity Goals: Goals X1 week 1. Supine-Sit independent 2. Sit-Supine independent 3. Sit-Stand SBA 4. Stand-Sit SBA 5. Bed-Chair SBA 6. Chair-Bed SBA 7. CGA gait on level surface with use of least restrictive device for at least 300 feet without report of pain nor dyspnea 8. CGA stair negotiation while holding onto bilateral rails for at least 10 steps without report of pain nor dyspnea 9. SBA with home exercise program 10. Good static and dynamic standing balance/tolerance Plan of Care/Treatment Plan: 1-2x/day, 7 days/week x 1 week. Plan of care has been reviewed with the EXPERIMENTAL AIRCRAFT MECHANIC providing the service under Physical Therapy direction. Initiate Physical Therapy intervention for strengthening, bed mobility, transfers, gait, stairs, balance training, use of assistive device. DISCHARGE RECOMMENDATIONS: Patient will benefit from residential facility placement for continued skilled physical therapy services in order to progress mobility level, strength, and balance in preparation left hip revision surgery. TREATMENT CODE/TIME: 23419 ? 25 minutes, 12920 x 16 minutes beginning at 10:04 AM. Thank you for the opportunity to participate in the care of this patient. Nallely Saha PT, DPT, CLT [facility] [place], [place]
[2019-10-23] MEDS: Normal Saline 1,000 ML 50 ML IV (13:22)
--- NOTE | 2019-10-23 14:29 | W.INDIABCONS ---
Date of service: 10/23/19 Time of Service: 14:29 Diabetes Inpatient Consult DESCRIPTION/ASSESSMENT: 59 year old female readmitted s/p fall at home. PMH: DM2, HTN, hyperlipidemia. BMI 29 indicates overweight status, has lost 24 lbs in last 2 years, beneficial. Recent A1C (08/13/19) 9.5% indicates poorly controlled diabetes putting Saundra at risk for numerous complications. Met with Saundra to provide inpatient diabetes counseling. Saundra has knowledge about diabetes, diabetic exchanges and takes medication as prescribed. Reports frequent fluctuations of blood sugars at home. Will follow up with communications writer after discharge for outpatient diabetes counseling. Estimated Needs: [id number] kcal, 60-70 g protein Following Diabetic Diet and meeting 100% nutrient and fluid intake. INTERVENTION: Provided education on DM including Hyper/hypoglycemia s/s with action plan for each scenario. Definition and types of CHO with examples, CHO counting, DASH diet materials, DM meal planning and label reading literature. Provided a blood sugar and food record chart and materials to reiterate CHO counting techniques. Reviewed desirable BG levels with patient with food choices and portions for optimal outcomes. Provided contact information for this RD and encouraged to call with any f/u questions r/t to DM self management. CDM from kitchen has been helping to count CHO's and achieve intake of ~65g/CHO per meal period. PLAN: Saundra will follow up with communications writer after discharge for diet education and optimal blood sugar control continue current meal plan Time Spent in Nutritional Counseling and Treatment: 20 min spent face to face
--- NOTE | 2019-10-23 14:39 | PT.INTREAT ---
Date of service: 10/23/19 Time of Service: 13:15 PT Notes Visit Reasons: RHABDOMYOLYSIS Inpatient Physical Therapy Treatment Note [facility] Date: 10/23/2019 SUBJECTIVE: Saundra states that she is very tired. She is willing to work with me. OBJECTIVE: [] BED MOBILITY/TRANSFERS Supine-sit: CGA Sit-supine: CGA Sit-stand: CGA Stand-sit: CGA GAIT Assistive Device: FWW Weight bearing: WBAT L Assist: CGA Distance: approx 80' THEREX: global LE strength and stabilization. See flowsheet for details. I gave her HCS with her leg graduate student instructor. ASSESSMENT: cues to heel strike with ambulation, as she tends to walk on toe. She is able to get foot flat on floor however this increases pain. PLAN: continue to work on her strengthening and functional mobility following PT POC> TREATMENT CODE/TIME: 25 min this pm. [id number], [id number]
--- NOTE | 2019-10-23 15:22 | PGE_ITS ---
Date of Service Date of service: 10/23/19 Time of Service: 15:23 Assessment and Plan Assessment and plan (1) Diabetes mellitus type 2, insulin dependent: Status: Acute Assessment and plan: Glucose of 68 this AM; improved to 93 at noon. Not characteristic of her usual readings. Likely d/t more appropriate intake. Decrease nightly lantus. Monitor and adjust insulin as needed. (2) Tobacco abuse: Status: Chronic Assessment and plan: Cont nicoderm patch. (3) Hypertension: Status: Chronic Assessment and plan: SBP in the 130's - 160's this AM On lisinopril 20mg daily. Increase to 30mg daily; renal function is good. Qualifiers: Hypertension type: essential hypertension Qualified Code(s): I10 - Essential (primary) hypertension (4) Prosthetic hip implant failure: Status: Acute Assessment and plan: With pain and gait instability PT and OT recommend SNF Pt is agreeable but [facility]'t [facility] Referrals sent. Tramadol prn for pain. Previous narcotic dependence but her PCP is OK with Tramadol. Subjective Subjective Patient reports: no new complaints Interval history since last seen: Ongoing L groin pain and LLE weaknes Eating well. No F/C Exam Const General: cooperative and no acute distress Nutritional Appearance: obese Orientation: alert, oriented x3 and other (Some difficutly recalling past events and conversations.) Resp Effort & Inspection: normal respiratory effort Auscultation: clear to auscultation bilaterally and diminished lung sounds Cardio Rate: regular rate Rhythm: regular rhythm Heart Sounds: S1 normal and S2 normal GI Inspection: obesity Palpation: soft Auscultation: normal bowel sounds Extrem General: normal to inspection and no clubbing, cyanosis or edema Left lower extremity: hip/thigh Details: tenderness (with hip movement) Psych Appearance: grossly normal Mood: congruent mood Affect: normal affect Attitude: cooperative Thought Process: tangential Objective Objective Clinical Data: Abnormal lab results 10/23/19 10/23/19 Range/Units 06:25 06:25 MCH 25.3 L (27.0-33.0) pg MCHC 31.2 L (32.0-36.0) % Absolute Lymphocytes 4.34 H (1.2-3.4) 10^3/uL Potassium 3.4 L (3.5-5.1) mmol/L Glucose 59 L (74-106) mg/dL Calcium 8.3 L (8.5-10.1) mg/dL AST 57 H (15-37) U/L Creatine Kinase 1420 H (26-192) U/L Albumin 2.9 L (3.4-5.0) g/dL Total Cholesterol 212 H (<200) mg/dL LDL Cholesterol, Calc 159 H (<100) mg/dL HDL Cholesterol 30 L (40-60) mg/dL Vital Signs Temperature 37.2 C 10/23/19 07:09 Temperature Source Axillary 10/23/19 07:09 Pulse 71 10/23/19 07:09 Pulse Rhythm Regular 10/23/19 14:28 Pulse Strength Normal 10/22/19 11:39 Respiratory Rate 17 10/23/19 07:09 Respiratory Effort Non-Labored 10/23/19 14:28 Respiratory Depth Normal 10/23/19 14:28 Respiratory Pattern Normal 10/23/19 14:28 Blood Pressure 149/90 H 10/23/19 07:09 Blood Pressure Mean 104 10/22/19 11:39 Blood Pressure Position Supine 10/22/19 11:39 Pulse Oximetry 94 L 10/23/19 08:20 Oxygen Delivery Method Room Air 10/23/19 08:20 Oxygen Flow Rate 0 10/23/19 08:20 Pain Level 8 10/23/19 07:09 Intake & Output 10/22/19 10/23/19 10/23/19 23:59 11:59 23:59 Intake Total 1328.333 / 2328.333 1240 / 1420 180 / 1420 Output Total 350 / 350 300 / 500 200 / 500 Balance 978.333 / 1977.333 940 / 920 -20 / 920 Weight 78.018 kg Intake: IV 1148.333 / 2148.333 1000 / 1000 Oral 180 / 180 240 / 420 180 / 420 Output: Urine 350 / 350 300 / 500 200 / 500 Other: Urine Color Yellow Straw Light Sandra Urine Appearance Clear Clear Clear Urine Odor Strong Normal None Voiding Methods Bedside Commode Bedside Commode Bedside Commode Diaper Incontinent Laboratory Results WBC 10.67 10^3/uL (4.4-10.8) 10/23/19 06:25 RBC 5.05 10^6/uL (3.93-5.22) 10/23/19 06:25 Hgb 12.8 g/dL (11.2-15.7) 10/23/19 06:25 Hct 41.0 % (36.0-46.0) 10/23/19 06:25 MCV 81.2 fL (80-95) 10/23/19 06:25 MCH 25.3 pg (27.0-33.0) L 10/23/19 06:25 MCHC 31.2 % (32.0-36.0) L 10/23/19 06:25 RDW 14.4 % (11.7-14.6) 10/23/19 06:25 Plt Count 210 10^3/uL (130-400) 10/23/19 06:25 MPV 9.5 fL (8.0-11.0) 10/23/19 06:25 Immature Gran % 0.3 10/23/19 06:25 Neutrophils % 50.6 10/23/19 06:25 Lymphocytes % 40.7 10/23/19 06:25 Monocytes % 4.9 10/23/19 06:25 Eosinophils % 3.2 10/23/19 06:25 Basophils % 0.3 10/23/19 06:25 Absolute Neutrophils 5.41 10^3/uL (1.2-6.7) 10/23/19 06:25 Absolute Lymphocytes 4.34 10^3/uL (1.2-3.4) H 10/23/19 06:25 Absolute Monocytes 0.52 10^3/uL (0.1-0.8) 10/23/19 06:25 Absolute Eosinophils 0.34 10^3/uL (0.0-0.7) 10/23/19 06:25 Absolute Basophils 0.03 10^3/uL (0.0-0.2) 10/23/19 06:25 Sodium 140 mmol/L (136-145) 10/23/19 06:25 Potassium 3.4 mmol/L (3.5-5.1) L 10/23/19 06:25 Chloride 106 mmol/L (98-107) 10/23/19 06:25 Carbon Dioxide 26.8 mmol/L (21.0-32.0) 10/23/19 06:25 Anion Gap 7.2 mmol/L (3-11) 10/23/19 06:25 BUN 12 mg/dL (7-18) 10/23/19 06:25 Creatinine 0.74 mg/dL (0.55-1.02) 10/23/19 06:25 Estimated GFR/1.73 m2 >= 60.00 (mL/min/1.73m2) 10/23/19 06:25 Glucose 59 mg/dL (74-106) L 10/23/19 06:25 Calcium 8.3 mg/dL (8.5-10.1) L 10/23/19 06:25 Magnesium 1.8 mg/dL (1.8-2.4) 10/23/19 06:25 Total Bilirubin 0.5 mg/dL (0.2-1.0) 10/23/19 06:25 AST 57 U/L (15-37) H 10/23/19 06:25 ALT 41 U/L (14-59) 10/23/19 06:25 Alkaline Phosphatase 70 U/L (46-116) 10/23/19 06:25 Creatine Kinase 1420 U/L (26-192) H 10/23/19 06:25 Total Protein 6.8 g/dL (6.4-8.2) 10/23/19 06:25 Albumin 2.9 g/dL (3.4-5.0) L 10/23/19 06:25 Triglycerides 119 mg/dL (<150) 10/23/19 06:25 Total Cholesterol 212 mg/dL (<200) H 10/23/19 06:25 LDL Cholesterol, Calc 159 mg/dL (<100) H 10/23/19 06:25 HDL Cholesterol 30 mg/dL (40-60) L 10/23/19 06:25 TSH 1.61 uIU/mL (0.36-3.74) 10/23/19 06:25 Urine Color Yellow (Yellow) 10/22/19 10:20 Urine Clarity Clear (Clear) 10/22/19 10:20 Urine pH 6.0 (5-8) 10/22/19 10:20 Ur Specific [place] 1.025 (1.005-1.025) 10/22/19 10:20 Urine Protein Negative mg/dL (Negative) 10/22/19 10:20 Urine Ketones Negative mg/dL (Negative) 08/06/20 10:20 Urine Blood Small (Negative) H 10/22/19 10:20 Urine Nitrite Negative (Negative) 10/22/19 10:20 Urine Bilirubin Negative (Negative) 10/22/19 10:20 Urine Urobilinogen 0.2 EU/dL (Up TO 0.2) 10/22/19 10:20 Ur Leukocyte Esterase Negative (Negative) 10/22/19 10:20 Urine RBC 5-10 HPF (0-2) H 10/22/19 10:20 Urine WBC Negative HPF (0-5) 10/22/19 10:20 Ur Epithelial Cells Few HPF (Negative) 10/22/19 10:20 Urine Crystals Negative HPF (Negative) 10/22/19 10:20 Urine Bacteria Negative HPF (Negative) 10/22/19 10:20 Urine Casts 0-2 fine granular LPF (Negative) 10/22/19 10:20 Urine Mucus Moderate (Negative) 10/22/19 10:20 Urine Other Rare renal (Negative) 10/22/19 10:20 Ur Culture Indicated? No 10/22/19 10:20 Urine Glucose 250 mg/dL (Negative) H 10/22/19 10:20 COVID-19 PCR Negative (Negative) 10/22/19 13:27 Nasopharyn COVID-19 PCR Not Applicable 10/22/19 13:27 Ref Test [facility] 10/22/19 13:27
[2019-10-23 15:29] VITALS: BP 148/81; PULSE 73; RESP 19; TEMP 36.5; O2SAT 94
[2019-10-23] MEDS: Enoxaparin 40 MG/0.4 ML SYR SC (16:05)
[2019-10-23 19:40] VITALS: BP 137/79; PULSE 77; RESP 18; TEMP 36.6; O2SAT 96
[2019-10-23] MEDS: Insulin Glargine 300 UNITS/3 ML PEN 50 UNITS SC (21:57)
[2019-10-23] MEDS: Nicotine 21 MG/24 HR PATCH TD (21:57)
--- NOTE | 2019-10-24 07:01 | NUR.NOTE ---
Right middle toe noted with bruise, pt state this is secondary from her lowering herself to the floor at home several days ago. Legs were washed and dry, bandaide applied to the toe to prevent any further injury.
[2019-10-24 07:22] VITALS: BP 141/72; PULSE 67; RESP 17; TEMP 36.6; O2SAT 94
[2019-10-24] MEDS: Polyethylene Glycol 3350 17 GM PACKET PO (07:48)
[2019-10-24] MEDS: Buprenorphine/Naloxone 8 mg/2 mg FILM 1 EACH SL (07:48)
[2019-10-24] MEDS: Gabapentin 300 MG CAP 600 MG PO ×2 (07:48→19:30)
[2019-10-24] MEDS: Milk of Magnesia 30 ML CUP PO (07:48)
[2019-10-24] MEDS: Lisinopril 20 MG TAB PO (07:49)
[2019-10-24] MEDS: Normal Saline Flush 10 ML SYR (09:00)
[2019-10-24 09:38] LABS: Anion Gap 7.4 mmol/L (3-11); BUN 11 mg/dL (7-18); CO2 26.6 mmol/L (21.0-32.0); CREATININE 0.69 mg/dL (0.55-1.02); Calcium 8.8 mg/dL (8.5-10.1); Chloride 105 mmol/L (98-107); Creatine Kinase 513 U/L (26-192); Glucose 145 mg/dL (74-106); Magnesium 1.9 mg/dL (1.8-2.4); Potassium 3.7 mmol/L (3.5-5.1); Sodium 139 mmol/L (136-145)
--- NOTE | 2019-10-24 09:54 | PTTR_ITS ---
Date of service: 10/24/19 Time of Service: 09:54 PT Notes Visit Reasons: RHABDOMYOLYSIS 10/24/2019 SUBJECTIVE: Saundra stating she feels like a different person today. Her pain is well managed throughout her hip and she has been up and moving around this morning. She is hoping maybe she can go home instead of going to the [facility] for rehab. OBJECTIVE: Pt seated in her recliner. Agreeable to PT treatment. TRANSFERS Sit to stand: SBA Stand to sit: SBA GAIT Device: FWW Weight bearing: AT L Assist: SBA Distance: 150' Deviation: Encouraged heel strike and she is able to perform this as she slows down her gait speed. THEREX: As noted on flow sheet for gentle LE strengthening. ASSESSMENT: Appears to be doing much better than yesterday with her pain under control. She is motivated to do her exercises today to get stronger for hip surgery. PLAN: Continue per POC. Treatment time: 25 minutes [id number], [id number] Lesley Dial PTA Clinic location: [facility] [place], [place]
[2019-10-24] MEDS: Normal Saline 1,000 ML 125 ML IV ×2 (10:06→18:09)
[2019-10-24 11:08] VITALS: BP 147/84; PULSE 72; RESP 16; TEMP 36.6; O2SAT 96
--- NOTE | 2019-10-24 11:36 | CMPROGNOTE_ITS ---
Care Management Progress Note S/O: Saundra was sitting up in her chair when CM met with her. She shared hopes of returning directly home and reported working hard with PT today. She appeared to be in good spirits and was fully engaged with this bond writer. She remains acute at this time per MD. CM continues to follow. A: 59 year old female admitted to [facility] 10/22/19 for Rhabdomyolysis P: Saundra continues to work with PT and may enter SWB1 at [facility] due to barriers to SNF: CM will resume coordination after the weekend, and continues to follow. With continued gains, Saundra may return directly home when medically cleared.
[2019-10-24] MEDS: traMADol 50 MG TAB PO (11:39)
[2019-10-24 15:59] VITALS: BP 130/81; PULSE 68; RESP 18; TEMP 36.7; O2SAT 97
[2019-10-24] MEDS: Enoxaparin 40 MG/0.4 ML SYR SC (17:00)
[2019-10-24] MEDS: Acetaminophen 325 MG TAB 650 MG PO (17:04)
--- NOTE | 2019-10-24 17:23 | W.PM.PROGNOT ---
Date of Service Date of service: 10/24/19 Time of Service: 16:45 Assessment and Plan Assessment and plan (1) Prosthetic hip implant failure: Status: Acute Assessment and plan: Not a candidate for repair at this time, but may become so in the future if compliant with diabetes management. PT recommends SNF placement. (2) Rhabdomyolysis: Status: Acute Assessment and plan: CPK in 500s today. Will spend the night on IVF. Recheck CPK In am. (3) Hypoglycemia: Status: Acute Assessment and plan: Asymptomatic, which is even more concerning. Decrease long acting insulin to 35 units tonight. The patient is normally on bydureon, last dose 1 week ago, which may still have been in her system this morning. Insulin doses will likely need to be adjusted as it is wearing off. (4) Diabetes mellitus type 2, insulin dependent: Status: Acute Assessment and plan: As above (5) Tobacco abuse: Status: Chronic Assessment and plan: provide nicotine replacement (6) Hypertension: Status: Chronic Assessment and plan: Remains on lisinopril 20 mg PO daily - current BPs in 130's - will not adjust dose. Qualifiers: Hypertension type: essential hypertension Qualified Code(s): I10 - Essential (primary) hypertension (7) DVT prophylaxis: Status: Acute Assessment and plan: lovenox SC (8) Discharge planning issues: Status: Acute Assessment and plan: Full code Will require SNF placement Subjective Subjective Interval history since last seen: Ms Horn states she is feeling a lot better. She has a lot less pain in her left lower extremity. She denies dizziness, chest pain, shortness of breath, nausea, vomiting. She was hypoglycemic to 60s this am - she states she was asymptomatic. She admits to eating differently since being in the hospital and admits to forgetting to eat at home sometimes. We discussed how both of these could be the reason why she could get a low blood sugar. Exam Narrative Exam Narrative: General: Pleasant middle-aged female, sitting up in a chair, A&Ox3 HEENT: EOMI, MMM Heart: RRR, no m/r/g Lungs: CTAB Abdomen: soft, nontender, nondistended Extremities: trace edema BLEs Objective Objective Clinical Data: Abnormal lab results 10/24/19 Range/Units 08:50 Glucose 145 H D (74-106) mg/dL Creatine Kinase 513 H (26-192) U/L Vital Signs Temperature 36.7 C 10/24/19 15:59 Temperature Source Tympanic 10/24/19 15:59 Pulse 68 10/24/19 15:59 Pulse Rhythm Regular 10/24/19 07:45 Pulse Strength Normal 10/22/19 11:39 Respiratory Rate 18 10/24/19 15:59 Respiratory Effort Non-Labored 10/24/19 07:45 Respiratory Depth Normal 10/24/19 07:45 Respiratory Pattern Normal 10/24/19 07:45 Blood Pressure 130/81 10/24/19 15:59 Blood Pressure Mean 104 10/22/19 11:39 Blood Pressure Position Supine 10/22/19 11:39 Pulse Oximetry 97 10/24/19 15:59 Oxygen Delivery Method Room Air 10/24/19 15:59 Oxygen Flow Rate 0 10/24/19 15:59 Pain Level 7 10/24/19 17:04 Comment 10/23/19 15:29 Intake & Output 10/23/19 10/24/19 10/24/19 23:59 11:59 23:59 Intake Total 576.667 / 1816.667 500 / 740 240 / 740 Output Total 950 / 1250 200 / 300 100 / 300 Balance -373.333 / 566.667 300 / 440 140 / 440 Intake: IV 156.667 / 1156.667 Oral 420 / 660 480 / 720 240 / 720 Output: Urine 950 / 1250 200 / 300 100 / 300 Other: Urine Color Yellow Straw Straw Urine Appearance Clear Clear Clear Urine Odor None Normal Normal Comment large amount of urine was on the floor. Void x1 in the toilet. Void x1 in the toilet. Voiding Methods Urinal Toilet Toilet Laboratory Results WBC 10.67 10^3/uL (4.4-10.8) 10/23/19 06:25 RBC 5.05 10^6/uL (3.93-5.22) 10/23/19 06:25 Hgb 12.8 g/dL (11.2-15.7) 10/23/19 06:25 Hct 41.0 % (36.0-46.0) 10/23/19 06:25 MCV 81.2 fL (80-95) 10/23/19 06:25 MCH 25.3 pg (27.0-33.0) L 10/23/19 06:25 MCHC 31.2 % (32.0-36.0) L 10/23/19 06:25 RDW 14.4 % (11.7-14.6) 10/23/19 06:25 Plt Count 210 10^3/uL (130-400) 10/23/19 06:25 MPV 9.5 fL (8.0-11.0) 10/23/19 06:25 Immature Gran % 0.3 10/23/19 06:25 Neutrophils % 50.6 10/23/19 06:25 Lymphocytes % 40.7 10/23/19 06:25 Monocytes % 4.9 10/23/19 06:25 Eosinophils % 3.2 10/23/19 06:25 Basophils % 0.3 10/23/19 06:25 Absolute Neutrophils 5.41 10^3/uL (1.2-6.7) 10/23/19 06:25 Absolute Lymphocytes 4.34 10^3/uL (1.2-3.4) H 10/23/19 06:25 Absolute Monocytes 0.52 10^3/uL (0.1-0.8) 10/23/19 06:25 Absolute Eosinophils 0.34 10^3/uL (0.0-0.7) 10/23/19 06:25 Absolute Basophils 0.03 10^3/uL (0.0-0.2) 10/23/19 06:25 Sodium 139 mmol/L (136-145) 10/24/19 08:50 Potassium 3.7 mmol/L (3.5-5.1) 10/24/19 08:50 Chloride 105 mmol/L (98-107) 10/24/19 08:50 Carbon Dioxide 26.6 mmol/L (21.0-32.0) 10/24/19 08:50 Anion Gap 7.4 mmol/L (3-11) 10/24/19 08:50 BUN 11 mg/dL (7-18) 10/24/19 08:50 Creatinine 0.69 mg/dL (0.55-1.02) 10/24/19 08:50 Estimated GFR/1.73 m2 >= 60.00 (mL/min/1.73m2) 10/24/19 08:50 Glucose 145 mg/dL (74-106) H D 10/24/19 08:50 Calcium 8.8 mg/dL (8.5-10.1) 10/24/19 08:50 Magnesium 1.9 mg/dL (1.8-2.4) 10/24/19 08:50 Total Bilirubin 0.5 mg/dL (0.2-1.0) 10/23/19 06:25 AST 57 U/L (15-37) H 10/23/19 06:25 ALT 41 U/L (14-59) 10/23/19 06:25 Alkaline Phosphatase 70 U/L (46-116) 10/23/19 06:25 Creatine Kinase 513 U/L (26-192) H 10/24/19 08:50 Total Protein 6.8 g/dL (6.4-8.2) 10/23/19 06:25 Albumin 2.9 g/dL (3.4-5.0) L 10/23/19 06:25 Triglycerides 119 mg/dL (<150) 10/23/19 06:25 Total Cholesterol 212 mg/dL (<200) H 10/23/19 06:25 LDL Cholesterol, Calc 159 mg/dL (<100) H 10/23/19 06:25 HDL Cholesterol 30 mg/dL (40-60) L 10/23/19 06:25 TSH 1.61 uIU/mL (0.36-3.74) 10/23/19 06:25 Urine Color Yellow (Yellow) 10/22/19 10:20 Urine Clarity Clear (Clear) 10/22/19 10:20 Urine pH 6.0 (5-8) 10/22/19 10:20 Ur Specific [place] 1.025 (1.005-1.025) 10/22/19 10:20 Urine Protein Negative mg/dL (Negative) 10/22/19 10:20 Urine Ketones Negative mg/dL (Negative) 10/22/19 10:20 Urine Blood Small (Negative) H 10/22/19 10:20 Urine Nitrite Negative (Negative) 10/22/19 10:20 Urine Bilirubin Negative (Negative) 10/22/19 10:20 Urine Urobilinogen 0.2 EU/dL (Up TO 0.2) 10/22/19 10:20 Ur Leukocyte Esterase Negative (Negative) 10/22/19 10:20 Urine RBC 5-10 HPF (0-2) H 10/22/19 10:20 Urine WBC Negative HPF (0-5) 10/22/19 10:20 Ur Epithelial Cells Few HPF (Negative) 10/22/19 10:20 Urine Crystals Negative HPF (Negative) 10/22/19 10:20 Urine Bacteria Negative HPF (Negative) 10/22/19 10:20 Urine Casts 0-2 fine granular LPF (Negative) 10/22/19 10:20 Urine Mucus Moderate (Negative) 10/22/19 10:20 Urine Other Rare renal (Negative) 10/22/19 10:20 Ur Culture Indicated? No 10/22/19 10:20 Urine Glucose 250 mg/dL (Negative) H 10/22/19 10:20 COVID-19 PCR Negative (Negative) 10/22/19 13:27 Nasopharyn COVID-19 PCR Not Applicable 10/22/19 13:27 Ref [facility] 10/22/19 13:27
[2019-10-24] MEDS: Insulin Glargine 300 UNITS/3 ML PEN 35 UNITS SC (22:00)
[2019-10-24] MEDS: Insulin Aspart 300 UNITS/3 ML PEN SC (22:01)
[2019-10-25] MEDS: Normal Saline 1,000 ML 125 ML IV (01:29)
[2019-10-25 07:40] VITALS: BP 147/84; PULSE 68; RESP 18; TEMP 36.1; O2SAT 96
[2019-10-25 07:46] LABS: Abs Immature Grans 0.02 10^3/uL (0.0-0.06); Absolute Basophil Count 0.02 10^3/uL (0.0-0.2); Absolute Eosinophil Count 0.24 10^3/uL (0.0-0.7); Absolute Lymphocyte Count 2.71 10^3/uL (1.2-3.4); Absolute Monocyte Count 0.47 10^3/uL (0.1-0.8); Absolute Neutrophil Count 3.95 10^3/uL (1.2-6.7); Basophils % 0.3; Eosinophils % 3.2; HCT 39.9 % (36.0-46.0); HGB 12.4 g/dL (11.2-15.7); Immature Grans % 0.3; Lymphocytes % 36.6; MCH 25.3 pg (27.0-33.0); MCHC 31.1 % (32.0-36.0); MCV 81.4 fL (80-95); MPV 9.6 fL (8.0-11.0); Monocytes % 6.3; Neutrophils % 53.3; Nucleated RBC 0 %; Platelet Count 189 10^3/uL (130-400); RDW-SD 40.7 fL; WBC 7.41 10^3/uL (4.4-10.8)
[2019-10-25 08:01] LABS: ALT 39 U/L (14-59); AST 34 U/L (15-37); Albumin 2.8 g/dL (3.4-5.0); Alkaline Phosphatase 61 U/L (46-116); Anion Gap 5.1 mmol/L (3-11); BUN 7 mg/dL (7-18); Bilirubin, Direct 0.07 mg/dL (0.00-0.20); Bilirubin, Total 0.4 mg/dL (0.2-1.0); CO2 26.9 mmol/L (21.0-32.0); CREATININE 0.55 mg/dL (0.55-1.02); Calcium 8.7 mg/dL (8.5-10.1); Chloride 106 mmol/L (98-107); Creatine Kinase 219 U/L (26-192); Magnesium 1.8 mg/dL (1.8-2.4); Potassium 3.7 mmol/L (3.5-5.1); Sodium 138 mmol/L (136-145); Total Protein 6.6 g/dL (6.4-8.2)
[2019-10-25 08:04] LABS: Glucose 77 mg/dL (74-106)
[2019-10-25] MEDS: Lisinopril 20 MG TAB PO (09:01)
[2019-10-25] MEDS: Buprenorphine/Naloxone 8 mg/2 mg FILM 1 EACH SL (09:01)
[2019-10-25] MEDS: Polyethylene Glycol 3350 17 GM PACKET PO (09:01)
[2019-10-25] MEDS: Gabapentin 300 MG CAP 600 MG PO ×2 (09:01→19:58)
[2019-10-25] MEDS: Acetaminophen 325 MG TAB 650 MG PO ×2 (09:01→17:29)
[2019-10-25] MEDS: traMADol 50 MG TAB PO ×2 (09:02→22:23)
[2019-10-25] MEDS: Normal Saline Flush 10 ML SYR (09:55)
[2019-10-25] MEDS: Pantoprazole 40 MG TABCR PO (09:55)
[2019-10-25] MEDS: Ondansetron 4 MG/2 ML VIAL IVP (09:55)
--- NOTE | 2019-10-25 09:58 | CMPROGNOTE_ITS ---
Care Management Progress Note S/O: Saundra was sitting up in her chair when CM met with her. She continues to be pleasant and humorous in interaction, though becomes weepy when discussing her current strained relationship with her daughter. She remains acute at this time per MD, but may require SWB1 stay tomorrow; dependent on PT evaluation for continued strengthening. MD continues to adjust diabetic medications, Saundra is also working with Holli for diabetic education. CM continues to follow. A: 59 year old female admitted to [facility] 10/22/19 for Rhabdomyolysis P: Saundra continues to work with PT and may enter SWB1 at [facility] due to barriers to SNF. With continued gains, Saundra may return directly home when medically cleared.
--- NOTE | 2019-10-25 10:10 | PT.INTREAT ---
Date of service: 10/25/19 Time of Service: 10:10 PT Notes Visit Reasons: RHABDOMYOLYSIS 10/25/2019 SUBJECTIVE: Saundra noted that she is nauseated today. This does happen to her sometimes after she eats. She is willing to attempt PT. OBJECTIVE: Seated in recliner. Not feeling well. Agreeable to PT. TRANSERS Sit to stand: SBA Stand to Sit: SBA GAIT Device: FWW Weight bearing: AT L Assist: SBA Distance: 150' Deviation: Encouraging heel strike ASSESSMENT: Defer therex due to pt's symptoms today. She was instructed in exercises to be performed when she is feeling better. Better tolerance to heel toe gait mechanics today. PLAN: Continue current POC. Treatment time: Lesley Dial PTA Clinic location: [facility] [place], [place]
[2019-10-25 15:35] VITALS: BP 128/69; PULSE 60; RESP 18; TEMP 37; O2SAT 96
--- NOTE | 2019-10-25 15:51 | W.PM.PROGNOT ---
Date of Service Date of service: 10/25/19 Time of Service: 15:51 Assessment and Plan Assessment and plan (1) Prosthetic hip implant failure: Status: Acute Assessment and plan: Not a candidate for repair at this time, but may become so in the future if compliant with diabetes management. PT recommends SNF placement. (2) Rhabdomyolysis: Status: Resolved Assessment and plan: IVF d/c'ed today (3) Hypoglycemia: Status: Acute Assessment and plan: Asymptomatic. Decrease long acting insulin to 10 units tonight. The patient is normally on bydureon, last dose 1 week ago, which may still be in her system. (4) Diabetes mellitus type 2, insulin dependent: Status: Acute Assessment and plan: As above (5) Tobacco abuse: Status: Chronic Assessment and plan: provide nicotine replacement (6) Hypertension: Status: Chronic Assessment and plan: Continue lisinopril 20 mg PO daily. Qualifiers: Hypertension type: essential hypertension Qualified Code(s): I10 - Essential (primary) hypertension (7) DVT prophylaxis: Status: Acute Assessment and plan: lovenox SC (8) Discharge planning issues: Status: Acute Assessment and plan: Full code Will require SNF placement Subjective Subjective Interval history since last seen: Ms Horn states that she spent the whole night getting up to urinate every hour. She has not noticed having to urinate as much since her IVF were d/c'ed. Was nauseated this am - states she is nauseated at home and takes a pill that starts with f for it that her PCP had prescribed to her. Unfortunately, I cannot find this medication in her medication reconcilliation. She denies dizziness, chest pain, shortness of breath. Exam Narrative Exam Narrative: General: Pleasant middle-aged female, in bed, looks comfortable, A&Ox3 HEENT: EOMI, MMM Heart: RRR, no m/r/g Lungs: CTAB Abdomen: soft, nontender, nondistended Extremities: trace edema BLEs Objective Objective Clinical Data: Abnormal lab results 10/25/19 10/25/19 Range/Units 07:00 07:00 MCH 25.3 L (27.0-33.0) pg MCHC 31.1 L (32.0-36.0) % Creatine Kinase 219 H (26-192) U/L Albumin 2.8 L (3.4-5.0) g/dL Vital Signs Temperature 37.0 C 10/25/19 15:35 Temperature Source Tympanic 10/25/19 15:35 Pulse 60 10/25/19 15:35 Pulse Rhythm Regular 10/24/19 23:15 Pulse Strength Normal 10/22/19 11:39 Respiratory Rate 18 10/25/19 15:35 Respiratory Effort Non-Labored 10/24/19 23:15 Respiratory Depth Normal 10/24/19 23:15 Respiratory Pattern Normal 10/24/19 23:15 Blood Pressure 128/69 10/25/19 15:35 Blood Pressure Mean 104 10/22/19 11:39 Blood Pressure Position Supine 10/22/19 11:39 Pulse Oximetry 96 10/25/19 15:35 Oxygen Delivery Method Room Air 10/25/19 15:35 Oxygen Flow Rate 0 10/25/19 15:35 Pain Level 0 10/25/19 15:35 Comment 10/25/19 14:59 Intake & Output 10/24/19 10/25/19 10/25/19 23:59 11:59 23:59 Intake Total 1480 / 1980 3130.417 / 3370.417 240 / 3370.417 Output Total 200 / 400 600 / 800 200 / 800 Balance 1280 / 1580 2530.417 / 2570.417 40 / 2570.417 Intake: IV 1000 / 1020 1860.417 / 1860.417 Oral 480 / 960 1270 / 1510 240 / 1510 Output: Urine 200 / 400 600 / 800 200 / 800 Other: Urine Color Straw Straw Straw Urine Appearance Clear Clear Clear Urine Odor Normal Normal Normal Comment Void x1 in the toilet. Void x1 in the toilet. Briefs were changed. Void x1 in the toilet. Briefs were changed. Voiding Methods Toilet Toilet Toilet Laboratory Results WBC 7.41 10^3/uL (4.4-10.8) 10/25/19 07:00 RBC 4.90 10^6/uL (3.93-5.22) 10/25/19 07:00 Hgb 12.4 g/dL (11.2-15.7) 10/25/19 07:00 Hct 39.9 % (36.0-46.0) 10/25/19 07:00 MCV 81.4 fL (80-95) 10/25/19 07:00 MCH 25.3 pg (27.0-33.0) L 10/25/19 07:00 MCHC 31.1 % (32.0-36.0) L 10/25/19 07:00 RDW 14.0 % (11.7-14.6) 10/25/19 07:00 Plt Count 189 10^3/uL (130-400) 10/25/19 07:00 MPV 9.6 fL (8.0-11.0) 10/25/19 07:00 Immature Gran % 0.3 10/25/19 07:00 Neutrophils % 53.3 10/25/19 07:00 Lymphocytes % 36.6 10/25/19 07:00 Monocytes % 6.3 10/25/19 07:00 Eosinophils % 3.2 10/25/19 07:00 Basophils % 0.3 10/25/19 07:00 Absolute Neutrophils 3.95 10^3/uL (1.2-6.7) 10/25/19 07:00 Absolute Lymphocytes 2.71 10^3/uL (1.2-3.4) 10/25/19 07:00 Absolute Monocytes 0.47 10^3/uL (0.1-0.8) 10/25/19 07:00 Absolute Eosinophils 0.24 10^3/uL (0.0-0.7) 10/25/19 07:00 Absolute Basophils 0.02 10^3/uL (0.0-0.2) 10/25/19 07:00 Sodium 138 mmol/L (136-145) 10/25/19 07:00 Potassium 3.7 mmol/L (3.5-5.1) 10/25/19 07:00 Chloride 106 mmol/L (98-107) 10/25/19 07:00 Carbon Dioxide 26.9 mmol/L (21.0-32.0) 10/25/19 07:00 Anion Gap 5.1 mmol/L (3-11) 10/25/19 07:00 BUN 7 mg/dL (7-18) 10/25/19 07:00 Creatinine 0.55 mg/dL (0.55-1.02) 10/25/19 07:00 Estimated GFR/1.73 m2 >= 60.00 (mL/min/1.73m2) 10/25/19 07:00 Glucose 77 mg/dL (74-106) D 10/25/19 07:00 Calcium 8.7 mg/dL (8.5-10.1) 10/25/19 07:00 Magnesium 1.8 mg/dL (1.8-2.4) 10/25/19 07:00 Total Bilirubin 0.4 mg/dL (0.2-1.0) 10/25/19 07:00 Conjugated Bilirubin 0.07 mg/dL (0.00-0.20) 10/25/19 07:00 AST 34 U/L (15-37) 10/25/19 07:00 ALT 39 U/L (14-59) 10/25/19 07:00 Alkaline Phosphatase 61 U/L (46-116) 10/25/19 07:00 Creatine Kinase 219 U/L (26-192) H 10/25/19 07:00 Total Protein 6.6 g/dL (6.4-8.2) 10/25/19 07:00 Albumin 2.8 g/dL (3.4-5.0) L 10/25/19 07:00 Triglycerides 119 mg/dL (<150) 10/23/19 06:25 Total Cholesterol 212 mg/dL (<200) H 10/23/19 06:25 LDL Cholesterol, Calc 159 mg/dL (<100) H 10/23/19 06:25 HDL Cholesterol 30 mg/dL (40-60) L 10/23/19 06:25 TSH 1.61 uIU/mL (0.36-3.74) 10/23/19 06:25 Urine Color Yellow (Yellow) 10/22/19 10:20 Urine Clarity Clear (Clear) 10/22/19 10:20 Urine pH 6.0 (5-8) 10/22/19 10:20 Ur Specific [place] 1.025 (1.005-1.025) 10/22/19 10:20 Urine Protein Negative mg/dL (Negative) 10/22/19 10:20 Urine Ketones Negative mg/dL (Negative) 10/22/19 10:20 Urine Blood Small (Negative) H 10/22/19 10:20 Urine Nitrite Negative (Negative) 10/22/19 10:20 Urine Bilirubin Negative (Negative) 10/22/19 10:20 Urine Urobilinogen 0.2 EU/dL (Up TO 0.2) 10/22/19 10:20 Ur Leukocyte Esterase Negative (Negative) 10/22/19 10:20 Urine RBC 5-10 HPF (0-2) H 10/22/19 10:20 Urine WBC Negative HPF (0-5) 10/22/19 10:20 Ur Epithelial Cells Few HPF (Negative) 10/22/19 10:20 Urine Crystals Negative HPF (Negative) 10/22/19 10:20 Urine Bacteria Negative HPF (Negative) 10/22/19 10:20 Urine Casts 0-2 fine granular LPF (Negative) 10/22/19 10:20 Urine Mucus Moderate (Negative) 10/22/19 10:20 Urine Other Rare renal (Negative) 10/22/19 10:20 Ur Culture Indicated? No 10/22/19 10:20 Urine Glucose 250 mg/dL (Negative) H 10/22/19 10:20 COVID-19 PCR Negative (Negative) 10/22/19 13:27 Nasopharyn COVID-19 PCR Not Applicable 10/22/19 13:27 Ref Test [facility] 10/22/19 13:27
[2019-10-25 17:20] LABS: Bilirubin Negative (Negative); Blood Negative (Negative); Clarity Clear (Clear); Glucose Negative (Negative); Ketones Negative (Negative); Leukocyte Esterase Negative (Negative); Nitrite Negative (Negative); Specific Gravity 1.025 (1.005-1.025); Urobilinogen 0.2 EU/dL (Up TO 0.2)
[2019-10-25] MEDS: Enoxaparin 40 MG/0.4 ML SYR SC (17:29)
[2019-10-25] MEDS: Insulin Aspart 300 UNITS/3 ML PEN SC (22:25)
[2019-10-25] MEDS: Insulin Glargine 300 UNITS/3 ML PEN 10 UNITS SC (22:25)
[2019-10-26 03:01] VITALS: BP 146/71; PULSE 60; RESP 18; TEMP 36.2; O2SAT 98
[2019-10-26 07:21] VITALS: BP 144/69; PULSE 64; RESP 17; TEMP 37; O2SAT 97
[2019-10-26] MEDS: Polyethylene Glycol 3350 17 GM PACKET PO (07:53)
[2019-10-26] MEDS: Gabapentin 300 MG CAP 600 MG PO ×2 (07:53→19:32)
[2019-10-26] MEDS: Buprenorphine/Naloxone 8 mg/2 mg FILM 1 EACH SL (07:53)
[2019-10-26] MEDS: Pantoprazole 40 MG TABCR PO (07:54)
[2019-10-26] MEDS: Lisinopril 20 MG TAB PO (07:54)
[2019-10-26] MEDS: traMADol 50 MG TAB PO ×2 (08:03→23:18)
--- NOTE | 2019-10-26 08:08 | NT_ITS ---
Date of service: 10/26/19 Time of Service: 08:05 Occupational Therapy Notes 10/26/19 OT attempted to see pt who denied, reporting that she is going home and would like to get washed up there. Debbie Suero OTR/[facility]
[2019-10-26 08:11] LABS: Abs Immature Grans 0.02 10^3/uL (0.0-0.06); Absolute Basophil Count 0.02 10^3/uL (0.0-0.2); Absolute Eosinophil Count 0.22 10^3/uL (0.0-0.7); Absolute Lymphocyte Count 2.71 10^3/uL (1.2-3.4); Absolute Monocyte Count 0.44 10^3/uL (0.1-0.8); Absolute Neutrophil Count 4.04 10^3/uL (1.2-6.7); Basophils % 0.3; HCT 42.2 % (36.0-46.0); Immature Grans % 0.3; Lymphocytes % 36.4; MCHC 30.8 % (32.0-36.0); MCV 81.3 fL (80-95); MPV 10.1 fL (8.0-11.0); Monocytes % 5.9; Neutrophils % 54.1; Nucleated RBC 0 %; Platelet Count 217 10^3/uL (130-400); RBC 5.19 10^6/uL (3.93-5.22); RDW 13.9 % (11.7-14.6); RDW-SD 40.8 fL; WBC 7.45 10^3/uL (4.4-10.8)
[2019-10-26 08:26] LABS: Anion Gap 8.5 mmol/L (3-11); BUN 9 mg/dL (7-18); CO2 27.5 mmol/L (21.0-32.0); Calcium 9.1 mg/dL (8.5-10.1); Chloride 103 mmol/L (98-107); Glucose 81 mg/dL (74-106); Magnesium 1.8 mg/dL (1.8-2.4); Potassium 3.9 mmol/L (3.5-5.1); Sodium 139 mmol/L (136-145)
--- NOTE | 2019-10-26 10:30 | PT.INTREAT ---
Date of service: 10/26/19 Time of Service: 10:30 PT Notes Visit Reasons: RHABDOMYOLYSIS Inpatient Physical Therapy Treatment Note [facility] Date: 10/26/19 PRECAUTIONS: Fall, WBAT L SUBJECTIVE: Saundra states that she just wants to go home today. She reports that she doesn't sleep well here, and that she feels she will do well at home. She also states that she needs a new shower bench, as hers is about to break. She is receptive to HH OT/PT, and states that she plans to continue to refrain from smoking once she is home. OBJECTIVE: PAIN: No c/o pain BED MOBILITY/TRANSFERS Supine-sit: I with HOB flat Sit-supine: I with HOB flat Sit-stand: S Stand-sit: S Bed-chair: S Chair-bed: S GAIT Assistive Device: FWW Weight bearing: WBAT L Assist: SBA Distance: 200' in a.m.; 260' in p.m. Deviation: Cueing for improved heel strike THEREX: Patient completed a LE strengthening and stabilization program in a supine position in a.m. and in a standing position in p.m., as per flow sheet. She requires verbal and visual cueing for appropriate exercise performance. ASSESSMENT: Patient tolerated session with minimal complaint of L LE soreness. She continues to require cueing for heel strike with gait, and was able to tolerate a progression in gait distance with FWW support and SBA. PLAN: Continue with PT's POC TREATMENT CODE/TIME: Session 1: 30 minutes; 20121, [id number] Session 2: 20 minutes; [id number]
--- NOTE | 2019-10-26 11:31 | W.PM.PROGNOT ---
Date of Service Date of service: 10/26/19 Time of Service: 11:31 Assessment and Plan Assessment and plan (1) Diabetes mellitus type 2, insulin dependent: Status: Acute Assessment and plan: I now question whether the patient requires insulin management at all. Her FBG is in the 80s after receiving just 10 units of lantus last night and a total of 2 units of aspart all day yesterday. She has been hypoglycemic every morning here until this morning, despite decreases in the doses of lantus. If the patient's account of when she last took bydureon is accurate, it should no longer be affecting her blood sugars at this time. I am rechecking her A1C (last checked in July). The patient never truly failed oral medications for diabetes - and given hypoglycemia at home as well as an extremely modest insulin requirement here, I think starting her on oral medications on discharge (such as metformin) seems most appropriate/safest. The patient would benefit from a home health nurse to help her with diabetes management as well. I think she could benefit from a CGM. She will need continued outpatient diabetes education. Will keep the patient overnight to observe her insulin needs today. (2) Hypoglycemia: Status: Resolved Assessment and plan: See above. (3) Rhabdomyolysis: Status: Resolved Assessment and plan: In setting of chronic pain/difficulty with mobility due to above. (4) Prosthetic hip implant failure: Status: Chronic Assessment and plan: The patient has progressed with PT to the point that she is felt safe to return home with home health PT. (5) Hypertension: Status: Chronic Assessment and plan: Continue lisinopril 20 mg PO daily. Qualifiers: Hypertension type: essential hypertension Qualified Code(s): I10 - Essential (primary) hypertension (6) Tobacco abuse: Status: Chronic Assessment and plan: provide nicotine replacement (7) DVT prophylaxis: Status: Acute Assessment and plan: lovenox SC (8) Discharge planning issues: Status: Acute Assessment and plan: Full code Plan to discharge home tomorrow with PO diabetes medications, home health nursing, PT, OT. Subjective Subjective Interval history since last seen: Ms Horn states she is feeling even better today. Pain is controlled. She is no longer interested in going to SNF and thinks she would like to go home. Per PT, the patient is safe for discharge home from their stand point as long as she has home health PT/OT. The patient's fasting blood sugar today was 81 after receiving 10 unis of lantus last night. She got a total of 2 units of aspart yesterday. The patient is sure that she had not doubled up on her bydureon and that she had not taken it since 10/17/2019. She admits to watching her diet more and more at home lately. She does not think she has lost much wait. Upon investigating further, the patient states she used to be on metformin without side effects. She was taken off of it during her hospitalization here in 2012. After some research, it became evident that she had not been compliant with metformin at the time that the switch happened. According to the patient, she had never been on any other pills. The patient was hypoglycemic at the time of arrival to our ED on this admission and likely was hypoglycemic at the time of the fall. She is very scared of how she felt. She agrees to stay another night while we figure out if she even needs insulin anymore. She denies dizziness, chest pain, shortness of breath, nausea this am. Exam Narrative Exam Narrative: General: Pleasant middle-aged female, A&Ox3, sitting in a chair comfortably HEENT: EOMI, MMM Heart: RRR, no m/r/g Lungs: CTAB Abdomen: soft, nontender, nondistended Extremities: trace edema BLEs Objective Objective Clinical Data: Abnormal lab results 10/26/19 Range/Units 07:42 MCH 25.0 L (27.0-33.0) pg MCHC 30.8 L (32.0-36.0) % Vital Signs Temperature 37.0 C 10/26/19 07:21 Temperature Source Temporal Artery Scan 10/26/19 07:21 Pulse 64 10/26/19 07:21 Pulse Rhythm Regular 10/26/19 10:10 Pulse Strength Normal 10/22/19 11:39 Respiratory Rate 17 10/26/19 07:21 Respiratory Effort 10/26/19 10:10 Respiratory Depth Normal 10/26/19 10:10 Respiratory Pattern Normal 10/26/19 10:10 Blood Pressure 144/69 H 10/26/19 07:21 Blood Pressure Mean 104 10/22/19 11:39 Blood Pressure Position Supine 10/22/19 11:39 Pulse Oximetry 97 10/26/19 07:21 Oxygen Delivery Method Room Air 10/26/19 07:21 Oxygen Flow Rate 0 10/26/19 07:21 Pain Level 7 10/26/19 08:03 Comment 10/25/19 14:59 Intake & Output 10/25/19 10/25/19 10/26/19 11:59 23:59 11:59 Intake Total 3150.417 / 3630.417 480 / 3630.417 240 / 240 Output Total 600 / 1100 500 / 1100 Balance 2550.417 / 2530.417 -20 / 2530.417 240 / 240 Intake: IV 1880.417 / 1880.417 Oral 1270 / 1750 480 / 1750 240 / 240 Output: Urine 600 / 1100 500 / 1100 Other: Urine Color Straw Yellow Urine Appearance Clear Clear Clear Urine Odor Normal Normal Comment Void x1 in the toilet. Briefs were changed. Void x1 in the toilet. Briefs were changed. Voiding Methods Toilet Toilet Laboratory Results WBC 7.45 10^3/uL (4.4-10.8) 10/26/19 07:42 RBC 5.19 10^6/uL (3.93-5.22) 10/26/19 07:42 Hgb 13.0 g/dL (11.2-15.7) 10/26/19 07:42 Hct 42.2 % (36.0-46.0) 10/26/19 07:42 MCV 81.3 fL (80-95) 10/26/19 07:42 MCH 25.0 pg (27.0-33.0) L 10/26/19 07:42 MCHC 30.8 % (32.0-36.0) L 10/26/19 07:42 RDW 13.9 % (11.7-14.6) 10/26/19 07:42 Plt Count 217 10^3/uL (130-400) 10/26/19 07:42 MPV 10.1 fL (8.0-11.0) 10/26/19 07:42 Immature Gran % 0.3 10/26/19 07:42 Neutrophils % 54.1 10/26/19 07:42 Lymphocytes % 36.4 10/26/19 07:42 Monocytes % 5.9 10/26/19 07:42 Eosinophils % 3.0 10/26/19 07:42 Basophils % 0.3 08/10/20 07:42 Absolute Neutrophils 4.04 10^3/uL (1.2-6.7) 10/26/19 07:42 Absolute Lymphocytes 2.71 10^3/uL (1.2-3.4) 10/26/19 07:42 Absolute Monocytes 0.44 10^3/uL (0.1-0.8) 10/26/19 07:42 Absolute Eosinophils 0.22 10^3/uL (0.0-0.7) 10/26/19 07:42 Absolute Basophils 0.02 10^3/uL (0.0-0.2) 10/26/19 07:42 Sodium 139 mmol/L (136-145) 10/26/19 07:42 Potassium 3.9 mmol/L (3.5-5.1) 10/26/19 07:42 Chloride 103 mmol/L (98-107) 10/26/19 07:42 Carbon Dioxide 27.5 mmol/L (21.0-32.0) 10/26/19 07:42 Anion Gap 8.5 mmol/L (3-11) 10/26/19 07:42 BUN 9 mg/dL (7-18) 10/26/19 07:42 Creatinine 0.70 mg/dL (0.55-1.02) 10/26/19 07:42 Estimated GFR/1.73 m2 >= 60.00 (mL/min/1.73m2) 10/26/19 07:42 Glucose 81 mg/dL (74-106) 10/26/19 07:42 Calcium 9.1 mg/dL (8.5-10.1) 10/26/19 07:42 Magnesium 1.8 mg/dL (1.8-2.4) 10/26/19 07:42 Total Bilirubin 0.4 mg/dL (0.2-1.0) 10/25/19 07:00 Conjugated Bilirubin 0.07 mg/dL (0.00-0.20) 10/25/19 07:00 AST 34 U/L (15-37) 10/25/19 07:00 ALT 39 U/L (14-59) 10/25/19 07:00 Alkaline Phosphatase 61 U/L (46-116) 10/25/19 07:00 Creatine Kinase 219 U/L (26-192) H 10/25/19 07:00 Total Protein 6.6 g/dL (6.4-8.2) 10/25/19 07:00 Albumin 2.8 g/dL (3.4-5.0) L 10/25/19 07:00 Triglycerides 119 mg/dL (<150) 10/23/19 06:25 Total Cholesterol 212 mg/dL (<200) H 10/23/19 06:25 LDL Cholesterol, Calc 159 mg/dL (<100) H 10/23/19 06:25 HDL Cholesterol 30 mg/dL (40-60) L 10/23/19 06:25 TSH 1.61 uIU/mL (0.36-3.74) 10/23/19 06:25 Urine Color Yellow (Yellow) 10/25/19 17:10 Urine Clarity Clear (Clear) 10/25/19 17:10 Urine pH 6.0 (5-8) 10/25/19 17:[address] 1.025 (1.005-1.025) 10/25/19 17:10 Urine Protein Negative mg/dL (Negative) 10/25/19 17:10 Urine Ketones Negative mg/dL (Negative) 10/25/19 17:10 Urine Blood Negative (Negative) 10/25/19 17:10 Urine Nitrite Negative (Negative) 10/25/19 17:10 Urine Bilirubin Negative (Negative) 10/25/19 17:10 Urine Urobilinogen 0.2 EU/dL (Up TO 0.2) 10/25/19 17:10 Ur Leukocyte Esterase Negative (Negative) 10/25/19 17:10 Urine RBC 5-10 HPF (0-2) H 10/22/19 10:20 Urine WBC Negative HPF (0-5) 10/22/19 10:20 Ur Epithelial Cells Few HPF (Negative) 10/22/19 10:20 Urine Crystals Negative HPF (Negative) 10/22/19 10:20 Urine Bacteria Negative HPF (Negative) 10/22/19 10:20 Urine Casts 0-2 fine granular LPF (Negative) 10/22/19 10:20 Urine Mucus Moderate (Negative) 10/22/19 10:20 Urine Other Rare renal (Negative) 10/22/19 10:20 Ur Culture Indicated? No 10/22/19 10:20 Urine Glucose Negative mg/dL (Negative) 10/25/19 17:10 COVID-19 PCR Negative (Negative) 10/22/19 13:27 Nasopharyn COVID-19 PCR Not Applicable 10/22/19 13:27 Ref Test Perform Site [facility] 10/22/19 13:27
[2019-10-26 12:11] LABS: Hemoglobin A1C 8.3 % (3.8-5.6)
--- NOTE | 2019-10-26 13:10 | CMDISCH_ITS ---
LACE Index Scoring Tool - Questions: Length of Stay (in days): 4 - 6 Acuity (Admit via E.D.?): Yes Comorbidities: Diabetes w/o Complication E.D. Visits: 2 - Answers: Total Score: 10 Risk of Readmission: High Risk Care Management Discharge Reason for Hospitalization: Rhabdomyolysis Discharge Plan: Saundra will return home with new [facility]NA orders for RN/PT/OT/BITUMINOUS PAVING MACHINE OPERATOR. Saundra requested shower chair support as well. She will follow up with her PCP and plan of care as prescribed. She will transport via private vehicle with a friend. Patient/Family Education Needs: Review of discharge instructions, discuss Ask Me Three. Services Needed at Discharge: DME Agency (Shower Chair ), Home Health Care Services (RN/PT/OT/BITUMINOUS PAVING MACHINE OPERATOR )
[2019-10-26] MEDS: Nicotine 21 MG/24 HR PATCH TD (14:53)
--- NOTE | 2019-10-26 15:10 | PDOC.CMPRO ---
Care Management Progress Note S/O: Saundra was sitting up in her chair when CM met with her. She continues to be pleasant in interaction, and remains acute at this time per MD, due to continued adjustment of diabetic medications, Saundra is also working with Holli for diabetic education. CM continues to follow. A: 59 year old female admitted to [facility] 10/22/19 for Rhabdomyolysis P: Saundra will return home with new VNA orders for RN/PT/OT/IMAGING TECHNOLOGIST and new glucose monitoring system (Noemi) prescriptions sent to [facility] in [facility]. Saundra requested shower chair support as well, prescription left for MD to complete. She will follow up with her PCP and plan of care as prescribed. She will transport via private vehicle with her significant other, Denzel.
[2019-10-26] MEDS: Enoxaparin 40 MG/0.4 ML SYR SC (16:20)
[2019-10-26 16:30] VITALS: BP 170/82; PULSE 61; RESP 18; TEMP 36.6; O2SAT 96
[2019-10-26] MEDS: Insulin Aspart 300 UNITS/3 ML PEN SC (21:47)
[2019-10-26 23:05] VITALS: BP 177/95; PULSE 67; RESP 20; TEMP 36.5; O2SAT 98
[2019-10-27] MEDS: Acetaminophen 325 MG TAB 650 MG PO (02:36)
[2019-10-27 07:39] VITALS: BP 129/73; PULSE 67; RESP 17; TEMP 36.5; O2SAT 95
--- NOTE | 2019-10-27 08:29 | OTTR_ITS ---
Date of service: 10/27/19 Time of Service: 07:25 Occupational Therapy Notes Occupational Therapy Inpatient Treatment Note Date: 10/27/19 PRECAUTIONS: Fall, Standard, Full SUBJECTIVE: Pt was sitting in her chair when OT arrived. She has c/o pain in her (R) UE in her chest/shoulder which she reports she feels is from her sleeping routine. She states that she is hopefully leaving today. OBJECTIVE: PAIN: c/o pain in (R) shoulder/pec area BATHING: Pt denies bathing because she states that she is going home. DRESSING: Sitting in chair with min vc pt was able to perform the following Lower Extremity: mod (I) with don and doffing (B) socks with good technique. She is able to appropriately utilize her sock aid, dressing stick and tour bus driver. She has difficulty bringing her (L) UE up on to her (R) due to her (L) leg pain. She is receptive to education and training. ASSESSMENT/PLAN: Pt is functionally able to perform her ADLs in the seated position with mod (I). She is demonstrating increased (I) and increased functional activity tolerance. TREATMENT CODES/TIME: [id number], 20 minutes (07:25) Debbie Suero, OTR/[facility]
[2019-10-27] MEDS: Insulin Aspart 300 UNITS/3 ML PEN SC ×2 (08:34→11:45)
[2019-10-27] MEDS: Lisinopril 20 MG TAB PO (08:35)
[2019-10-27] MEDS: Pantoprazole 40 MG TABCR PO (08:35)
[2019-10-27] MEDS: Gabapentin 300 MG CAP 600 MG PO (08:35)
[2019-10-27] MEDS: metFORMIN 500 MG TAB 1000 MG PO (08:35)
[2019-10-27] MEDS: Polyethylene Glycol 3350 17 GM PACKET PO (08:35)
[2019-10-27] MEDS: Furosemide 20 MG TAB PO (08:36)
[2019-10-27] MEDS: Buprenorphine/Naloxone 8 mg/2 mg FILM 1 EACH SL (08:36)
--- NOTE | 2019-10-27 10:47 | W.PM.DS.N ---
Date of service: 10/27/19 Time of Service: 10:47 DS: Diagnosis Discharge Diagnosis (1) Fall: Status: Acute (2) Hypoglycemia: Status: Resolved (3) Rhabdomyolysis: Status: Resolved (4) Type 2 diabetes mellitus: Status: Chronic (5) Prosthetic hip implant failure: Status: Chronic (6) Strain of right pectoralis muscle: Status: Acute (7) Hypertension: Status: Chronic (8) GERD (gastroesophageal reflux disease): Status: Chronic (9) Tobacco abuse: Status: Chronic (10) Ambulatory dysfunction: Status: Chronic (11) COVID-19 ruled out by laboratory testing: Status: Acute Discharge Plan Disposition Patient Disposition: HOME W/HOME HEALTH SERVICE Condition: Fair Discharge Details Chief Complaint: Orthopedic Clinical Impression: Rhabdomyolysis, Weakness, Prosthetic hip implant failure Reason For Visit: RHABDOMYOLYSIS Admit Date/Time: 10/22/19 12:47 Admit Provider: Samuel Shaw Attending Provider: Samuel Shaw Primary Care Provider: Mary Lou Maddox ED Provider: Min Faulkner Hospital Course Hospital Course: Ms Horn is a 59 year old female with PMHx of previously insulin-dependent diabetes mellitus type 2, 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 For her rhandomyolysis, she was treated with IVF. She has been working with physical therapy and is felt safe to be discharged home with home health PT and OT and recommendations for using a walker (which the patient has a home) rather than a cane. She will need to follow up with her orthopedist as an outpatient. Ultram was added to her regimen. As far as hypoglycemia, the patient states that she had been initiated on bydureon 6 weeks ago and continued to take her sliding scale insulin as well as her lantus 62 units at night. Her last dose of bydureon was on October 16. We do not have a record of what the patient's blood sugars have been at home, but it does sound like there have been lows. This time, her hypoglycemia resulted in a dangerous fall from which the patient could not get up. The patient does not consistently measure her blood sugars at home. Her A1C is 8.3 on this admission, down from 9.5 in July. On this admission, when bydureon should have been out of her system, we found that her insulin requirement has been minimal (1 unit total in the last 24 hours) while on carb consistent diet in the hospital. Investigating this further, in 2012, the patient was initiated on insulin in the hospital while never really truthfully trialing metformin on a consistent basis as outpatient (the patient had been non-compliant with it). It appears that she has been on insulin ever since. The patient admits to not having the best diet at home, but is motivated to change it. She underwent diabetes education and will continue to follow up them on outpatient basis to help get on track. The patient is being discharged home on metformin 1000 mg PO BID and is being initiated on the Noemi continuous glucose monitor, which DM education will help her with. This data can then inform PCP's decision on further treatment. It is this provider's strong feeling that the patient can likely be more safely treated with oral hypoglycemic agents. Her Bydureon and insulin are being stopped at the time of discharge. She is being discharged home with a referral for home health nursing as well to ensure that the patient has additional support for her diabetes at home. She would also benefit from a referral to an DAIRY ASSOCIATE. Physical therapy also recommends cold compresses and ongoing manual therapy for patient's right pectoralis muscle spasm by home health PT. The patient is medically stable for discharge home today with home health PT, OT, DAIRY ASSOCIATE and nursing. She will need follow up with PCP, diabetes education, orthopedics. Home Meds and New Rx's Prescriptions: New (DME) FreeStyle Noemi 14 Day Sensor Kit See Rx Instructions .ROUTE .MEDSUPPLY Qty: 2 RF: 0 (DME) FreeStyle Noemi 14 Day [place] Misc See Rx Instructions .ROUTE .MEDSUPPLY Qty: 1 RF: 0 metformin 500 mg Tablet 1,000 mg PO BID@0800,1700 Qty: 60 RF: 0 tramadol 50 mg Tablet 50 mg PO Q6H PRN PRNQty: 20 RF: 0 nicotine 21 mg/24 hr Patch 24 Hour 21 mg transdermal DAILY PRN PRNQty: 30 RF: 0 (DME) FreeStyle Precision [place] Strips Strip See Rx Instructions .ROUTE .MEDSUPPLY Qty: 100 RF: 0 pantoprazole 40 mg Tablet,Delayed Release (Dr/Ec) 40 mg PO DAILY@0730 Qty: 30 RF: 0 Continued albuterol sulfate [Ventolin HFA] 60 PUFF HFA aerosol inhaler 2 puff PRN PRNRF: 0 furosemide 20 MG tablet 20 mg PO DAILY RF: 0 gabapentin 300 MG capsule 600 mg PO BID RF: 0 buprenorphine-naloxone [Suboxone] 8-2 mg Film 1 film SUBLINGUAL DAILY RF: 0 fluticasone propionate 50 mcg/actuation [place],Suspension 2 spray INTRANASAL DAILY RF: 0 lisinopril 20 mg Tablet 20 mg PO DAILY RF: 0 Discontinued insulin aspart U-100 [Novolog PenFill U-100 Insulin] 100 UNIT/ML cartridge 5 units Sub-Q AC Qty: 9 RF: 0 Lantus U-100 Insulin 100 UNIT/ML solution 62 units Sub-Q HS RF: 0 Bydureon 2 mg/0.65 mL pen injector 2 mg SUBCUT QWEEK RF: 0 Discharge Instructions Instructions: Metformin (By mouth), How to Stop Smoking (DC), Hypoglycemia in a Person with Diabetes (DC), Meal Planning with Diabetes Exchanges (DC) Additional Instructions: You must stop smoking! Ambulate with a walker. Return to the hospital with any fever, bleeding, chest pain, shortness of breath. For the next few days, use your old meter and strips to check your blood sugar when you first wake up (day 1), 2 hours after breakfast (day 2), 2 hours after dinner (day 3) and at bedtime (day 4). Keep a record of your blood sugars and bring them with you to your diabetes education appointment. Contact your PCP if you are noticing blood sugars of 300 or greater for further instructions. Follow a carb consistent diet. Care Plan Goals: Home with home health nursing, PT, OT, DAIRY ASSOCIATE. Referrals: Jean Mclean [OTHER] - Mary Lou Maddox [Primary Care Provider] - Activity:: Activity as Tolerated Equipment/Supplies:: walker (patient has at home) Diet:: Carb Counting Discharge Orders Discharge Orders: Discharge Order (Routine); Ordered 10/27/19 Ordered By: Margo Gamez DS: Summary Status at Discharge Functional status at discharge: uses cane/walker Overall status at discharge: patient is back to baseline Mental Status: mental status grossly normal Speech and Movement: speech and movement normal Mood: congruent mood Affect: normal affect Exam Narrative Exam Narrative: General: Pleasant middle-aged female, A&Ox3, sitting in a chair comfortably HEENT: EOMI, MMM Heart: RRR, no m/r/g Lungs: CTAB Abdomen: soft, nontender, nondistended Extremities: trace edema BLEs Psych Mental Status: mental status grossly normal Speech and Movement: speech and movement normal Mood: congruent mood Affect: normal affect DS: Data Vitals/I&O Vitals and I&O: Vital Signs Temperature 36.5 C 10/27/19 07:39 Temperature Source Tympanic 10/27/19 07:39 Pulse 67 10/27/19 07:39 Pulse Rhythm Regular 10/27/19 08:30 Pulse Strength Normal 10/22/19 11:39 Respiratory Rate 17 10/27/19 07:39 Respiratory Effort Non-Labored 10/27/19 08:30 Respiratory Depth Normal 10/27/19 08:30 Respiratory Pattern Normal 10/27/19 08:30 Blood Pressure 129/73 10/27/19 07:39 Blood Pressure Mean 104 10/22/19 11:39 Blood Pressure Position Supine 10/22/19 11:39 Pulse Oximetry 95 10/27/19 07:39 Oxygen Delivery Method Room Air 10/27/19 07:39 Oxygen Flow Rate 0 10/27/19 07:39 Pain Level 8 10/27/19 07:39 Comment 10/25/19 14:59 Intake & Output 10/26/19 10/26/19 10/27/19 11:59 23:59 11:59 Intake Total 240 / 490 250 / 490 240 / 240 Output Total 300 / 300 900 / 900 Balance -60 / 190 250 / 190 -660 / -660 Intake: Oral 240 / 490 250 / 490 240 / 240 Output: Urine 300 / 300 900 / 900 Other: Urine Color Yellow Yellow Light Sandra Urine Appearance Clear Clear Clear Urine Odor Normal Normal Normal Comment pt up to the bathroom indpendently Voiding Methods Toilet Toilet Toilet Data Completed and Pending Completed studies during hospitalization [Text1]: XR L hip 10/22/2019: Two views were obtained. There is hip joint replacement in position on the left. Note is made of high density material which may be osteophytic or which could represent cement projected superior to the greater trochanter. If there is a clinical suspicion of disruption of the acetabular component, additional evaluation with CT may be considered. This finding is new since prior radiographs of April 2014. Moderate degenerative changes of the right hip noted. CT L hip 10/22/2019: Fragmentation of cement material as described above which lies predominantly in the soft tissue superior to the femoral neck region. 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
--- NOTE | 2019-10-27 11:20 | PT.INTREAT ---
Date of service: 10/27/19 Time of Service: 11:20 PT Notes Visit Reasons: RHABDOMYOLYSIS PT Inpatient Treatment Note Date: 10/27/19 Patient Location: Med Surg SUBJECTIVE: Saundra reports that she had significant pain in her right shoulder and pectoral areas last night, which continued into this morning. She believes that she slept wrong work for a muscle. Following manual therapy treatment, she reports a decrease in pain and symptoms. OBJECTIVE: Manual therapy: ([id number]). Performed STM and TPR techniques throughout pec major, upper traps, scalenes, and SCM, with reports of symptomatic relief. Also performed AAROM throughout all planes. Light pectoral stretching performed. Cold compress applied following manual therapy treatment. Total Treatment Time: 20 minutes; [id number]
--- NOTE | 2019-10-27 11:44 | PDOC.HHF2F_ITS ---
Home Health Certification Home Health Certification: 1. Encounter Date and Reason I certify that HÉCTOR VELAZCO was seen by Margo Gamez on 10/27/19 and that I had a [id number] encounter with this patient that meets the physician face to face encounter requirements. 2. Clinical Findings Supporting Skilled Need and Homebound Status I certify that home health services are medically necessary, include either intermittent senior care and/or physical/speech therapy, and that this patient is homebound in that absences from the home require considerable and taxing effort and are infrequent or of short duration, or are attributable to the need to receive medical care. [X] (a) Attached documentation from encounter provides clinical findings supporting skilled need and homebound status (including what assistance patient requires to leave the home). The encounter with the patient was in whole, or in part, for the following medical condition, which is the primary reason for home health care: RHABDOMYOLYSIS Retirement: Diabetes previously treated with insulin + bydureon with multiple hypoglycemic episodes, now being switched to metformin (prior therapy d/c'ed). Assess for medication teaching/safety, blood sugar monitoring. The patient is being initiated with a CGM as outpatient. Physical Therapy: eval and treat (chronic L hip pain with cement spacer in place, ambulating with a walker, R pectoral spasm) Occupational Therapy: eval and treat BIOMASS FACILITATOR: evaluate the need for resources in the community Homebound: unable to leave home without assistance 3. Certification and Authentication I certify that I composed the above information based on my clinical judgement relating to this patient's medical condition and, if applicable, clinical findings communicated to me by the NPP or inpatient physician who performed the Home Health Referral. All further orders will be obtained through _Mary Lou Maddox (Community Based Physician - PCP)
--- NOTE | 2019-10-27 12:16 | W.NUTCONSULT ---
Date of service: 10/27/19 Time of Service: 10:00 Nutritional Consult ASSESSMENT: 59 y/o female w/ Hx DM2 and recent hypoglycemia. Currently 172lb, 143% IBW, w/ BMI 29.5 indicating overweight. She reports her BG levels are often in the high 200's-low 300's. Recent BG documented 77-81mg/dl. Patient presented with s/s hypoglycemia upon admission secondary to a fall. Hospitalist has ordered CGM (Free style Noemi) which is being sent home with patient. She states that some of her food choices may have contributed to exacerbating her condition. Patient reports she has a working glucometer at home. Noted: on 1000mg metformin BID @ 8p and 1700. INTERVENTION: Reviewed [employer] and [employer] phone cathy which Saundra has downloaded to help with mindfulness of CHO content in food items, Reviewed CHO counting and recommended <60g/CHO per meal period. Explained unintended consequences of untreated DM. Provided literature and instructional video for CGM device ( FreeeBayyle Noemi). Set up outpatient appointment for one hour instruction to set up and apply the CGM on 10/29. Provided education and literature on menu and meal planning for DM compliance. Reviewed desired BG ranges and provided literature to reiterate. PLAN: Saundra will use glucose monitor to track BG levels and also record food and beverage at home. Patient will receive education and application instructions for CGM device on 10/29. This RD will schedule f/u appointment to review data and BG trends/ time in range with Saundra two weeks after 10/26 appointment. Time Spent in Nutritional Counseling and Treatment: 30 minutes
--- NOTE | 2019-10-27 14:02 | CHAPLAIN ---
Saundra believes she is being discharged this afternoon, and is happy to be going home. She has a November date for her hip surgery at [facility]. Saundra has had a difficult year with the loss of several friends, a few to overdoses. She relies on her significant other, Denzel, for support and is touch with her daughter and other family members in [place] by phone. She is hoping to not go back to smoking after not smoking while she's been here for about 5 days.
--- NOTE | 2019-10-27 16:40 | CMDISCH_ITS ---
- If Service Date Differs Date of service: 10/27/19 Time of Service: 16:40 LACE Index Scoring Tool - Questions: Length of Stay (in days): 4 - 6 Acuity (Admit via E.D.?): Yes Comorbidities: Diabetes w/o Complication E.D. Visits: 2 - Answers: Total Score: 10 Risk of Readmission: High Risk Care Management Discharge Reason for Hospitalization: Rhabdomyolysis Discharge Plan: Saundra will be discharged home with new services for RN, PT, OT, and HEALTH PROMOTION EDUCATOR coordinated through [facility]. She has received a new Queue-it Noemi glucometer for continuous glucose monitoring and will meet this week on an outpatient basis with a Bung Remover regarding its care and use. Saundra will follow up with her PCP and discharge plan of care and transport via private vehicle with a friend. Patient/Family Education Needs: Discharge plan, limitations, Diabetes Care, Ask me Three
--- NOTE | 2019-10-28 07:35 | OT.INDS ---
Date of service: 10/28/19 Time of Service: 07:35 Occupational Therapy Notes Occupational Therapy Inpatient Discharge Summary Date: 10/28/19 Dates of Service: 10/23/19-10/27/19 Referring Doctor:Samuel Sahw NP OT Orders: Non-Urgent Precautions: Fall, Standard, Full *This document serves as a summary of care, no skilled OT services were provided for this documentation* PATIENT PROFILE/ADMITTING DIAGNOSIS: Pt is a 59 year female who presented to the ER on 10/22/19 after a fall at home where she reports that she was trying to get up multiple times and felt weak and unable to get out of the supine position. Her significant other called EMS who presented pt to the ER. She was admitted with a dx of DM II, tobacco abuse, HTN, hyperlipidemia, depression, rhabdomyolysis, weakness, prosthetic hip implant failure. Past Medical History-Anxiety, depression, diabetes, history of tobacco use, history of intravenous drug use, hypertension, hyperlipidemia, sciatica, urinary incontinence, history of hip infections. Tonsillectomy, pilonidal cyst, and hip surgery. Social History/Home Situation: Pt states that she lives in an apartment with her significant other Denzel. She states that at baseline she is relatively (I). She is able to drive, she is able to get herself dressed with decreased (L) leg mobility limiting her LE dressing and bathing. She is (I) with eating and is able to prepare her own meals. She notes that recently Denzel has been performing more of the cooking demands, laundry and (A) at times with physics department chair. Pt states that her hip over the past year has limited her in her functional activities. She tries to be (I) as possible at baseline. Her apartment is set up with handicap accessible tools including pull cords, a ramp. She has a tub shower which is bothersome to her to get her (L) leg into d/t pain. She utilizes a cane but has recently had to use her FWW because her pain has been so bad. Equipment owned/DME: raised toilet seat, grab bars, FWW, Cane, ramp to enter her apartment. SUBJECTIVE: NT OBJECTIVE: ROM: RUE AROM WFL L UE AROM WFL STRENGTH: RUE 4/5 throughout globally LUE 4/5 throughout globally SENSATION: Intact (B) UE FUNCTIONAL MOBILITY/ADLS: Transfers with FWW Supine-sit (S) Sit-supine Mod (A) with (L) leg bringing leg into bed, pt was able to perform this (I) with leg neurology technician BATHING max (A) Set/clean up Bathing UE (I) face, (B) UE, abdomen Bathing LE Mod (A) for (L) LE, (I) (R) LE DRESSING Sitting on side of the bed Dressing UE (I) don and doffing shirt Dressing LE Pt was (I) with (R) sock with increased performance time and required max (A) for (L) sock as pts pain and decreased (L) LE ROM. GROOMING Sitting on side of the bed (I) brushing hair and with max (A) Set up/clean up (I) with brushing teeth sitting on side of the bed. TOILETING on toilet (I) EATING seated in chair (I) BALANCE: Static sitting Normal Dynamic Sitting Good Static standing Normal Dynamic standing Good ASSESSMENT: Patient is a 59-year-old female referred to occupational therapy services with diagnosis of DM II, tobacco abuse, HTN, hyperlipidemia, depression, rhabdomyolysis, weakness, prosthetic hip implant failure. Pt was seen for 3 skilled OT sessions, she was trained in adaptive equipment, demonstrated increased functional activity tolerance and was able to perform her ADL routines (I) with the exception of dressing and bathing of her (L) LE. Pt was discharged home with services and edically cleared per MD on 10/27/19. GOALS 1. Transfers with FWW (S) with min vc- met 2. Dressing sitting in chair mod (I) with don and doffing socks, min (A) don and doffing pants- met with the exception of her (L) LE 3. Bathing sitting in chair (I) UE/LE- not met 4. Toileting on toilet (I)- met 5. Eating (I)- met PLAN OF CARE/TREATMENT PLAN: Discharge from OT services. DISCHARGE RECOMMENDATIONS Based on pts current level of function and increased pain as she awaits surgery for her (L) hip, OT recommends that pt go to SNF. With pts pain, decreased functional activity tolerance and inability to perform her ADLs/IADLs at her baseline level of function, pt is a high risk for re-admission while awaiting surgery. If pt does return home, OT recommends HH services to be involved including PT/OT to work with pt and (A) as needed in her home environment. *Pt was discharged home with HH services on 10/27/19. TREATMENT TIME/MINUTES/CODES N/A Debbie Suero OTR/L [facility]
--- NOTE | 2019-10-28 15:10 | PT.INDS ---
Date of service: 10/28/19 PT Notes Visit Reasons: RHABDOMYOLYSIS Inpatient Physical Therapy Discharge Summary Dates: 10/28/2019 Dates of service: 10/23/2019 through 10/26/2019 This is a clinical summary of care provided on the duration of dates listed above. No charge was made in the completion of this documentation. Referring Doctor: Samuel Shaw MD PT Orders: PT CONSULT: Eval/Treat Precautions: Fall. Standard. WBAT on left LE per hospitalist. Patient Profile/Admitting Diagnosis: Saundra is a 59-year-old female who presented to the ED on 10/22/2019 with a chief complaints of weakness in the left LE and recent fall. Patient is diagnosed with rhabdomyolysis, prostatic implant failure status post left hip spacer implant in situ, and poorly managed diabetes mellitus type II. PMHX: Medical history Anxiety Depression TYpe II DM Tobacco use History of intravenous drug use Hypertension Sciatica History of left hip infections Surgical History Tonsillectomy Pilonidal cyst Hip surgery Social History/Home Situation: Lives with significant other in an apartment complex with a ramp to enter. Independent with all mobility ADL performance using the front wheeled walker. Manages meals, grocery shopping, and laundry with significant other. Equipment Owned/DME: Front wheeled walker Subjective: NT. See most recent COMPENSATION AND BENEFITS ADVISOR notes. Objective: General Observation: NT. See most recent COMPENSATION AND BENEFITS ADVISOR notes. Mental Status: NT. See most recent COMPENSATION AND BENEFITS ADVISOR notes. Pain: NT. See most recent COMPENSATION AND BENEFITS ADVISOR notes. ROM: Right Upper Extremity: Shoulder Flexion WFL. Shoulder abduction WFL. Elbow flexion WFL. Wrist flexion WFL. Opening and closing of hand WFL. Left Upper Extremity: Shoulder Flexion WFL. Shoulder abduction WFL. Elbow flexion WFL. Wrist flexion WFL. Opening and closing of hand WFL. Right Lower Extremity: Hip flexion WFL. Hip abduction WFL. Knee flexion WFL. Ankle dorsiflexion WFL. Ankle plantarflexion WFL. Left Lower Extremity: Hip flexion to 15 degrees of hip flexion while seated at edge of bed. Hip abduction WFL. Knee flexion 20 to 110 degrees. Knee extension -20 degrees. Ankle dorsiflexion WFL. Ankle plantarflexion WFL. Strength: Right Upper Extremity: Shoulder flexors 5/5. Shoulder abductors 5/5. Elbow flexors 5/5. Elbow extensors 5/5. Criminal Defense Attorney strong. Left Upper Extremity: Shoulder flexors 5/5. Shoulder abductors 5/5. Elbow flexors 5/5. Elbow extensors 5/5. Criminal Defense Attorney strong. Right Lower Extremity: Hip flexors 5/5. Hip abductors 5/5. Knee flexors 5/5. Knee extensors 5/5. Ankle dorsiflexors 5/5. Ankle plantarflexors 5/5. Left Lower Extremity:Hip flexors 3-/5. Hip abductors 4-/5. Knee flexors 4-/5. Knee extensors 3-/5. Ankle dorsiflexors 5/5. Ankle plantarflexors 5/5. Sensation: Intact as to pain and pressure on bilateral lower extremities. Bed Mobility/Transfers: Rolling independent Supine to sit independent Sit to supine independent Sit to stand supervision Stand to sit supervision Bed to chair supervision Chair to bed supervision Gait: Patient tolerated level surface ambulation of 260 feet using front-wheeled walker. Heel toe gait pattern emphasized. Step height and step length increasing. SBA provided. Balance: Static Sitting: Normal Dynamic Sitting: Normal Static Standing: Fair Dynamic Standing: Fair Assessment: Saundra demonstrate significant functional mobility improvement during this episode of care and will continue to benefit from home health physical therapy services in order to progress mobility level and promote preoperative physical conditioning for a potential left hip revision. Saundra is a 59-year-old female who presented to the ED on 10/22/2019 with a chief complaints of weakness in the left LE and recent fall. Patient is diagnosed with rhabdomyolysis, prostatic implant failure status post left hip spacer in situ, and poorly managed diabetes mellitus type II. Without consistent PT services, patient will be at risk for further functional decline, falls, skin breakdown, increased burden of care, and increased risk of re-hospitalization. Patient presents with clinical signs and symptoms consistent with current/admitting diagnoses that have resulted to mobility limitations, gait instability, generalized weakness, and impairment of motor control as demonstrated by the following impairment level findings: 1. Decreased strength to left hip major muscle groups 2. Impaired standing balance 3. Impaired activity tolerance 4. Limitation of joint range of motion in left hip Impairments are contributing to the following functional limitations: 1. Inability to safely ambulate without assistive device and physical assistance 2. Increase completion time for mobility ADL performance 3. Increased fall risk 4. Inability to negotiate steps alone safely Goals: Goals X1 week 1. Supine-Sit independent MET 2. Sit-Supine independent MET 3. Sit-Stand SBA MET 4. Stand-Sit SBA MET 5. Bed-Chair SBA MET 6. Chair-Bed SBA MET 7. CGA gait on level surface with use of least restrictive device for at least 300 feet without report of pain nor dyspnea MET 8. CGA stair negotiation while holding onto bilateral rails for at least 10 steps without report of pain nor dyspnea MET 9. SBA with home exercise program MET 10. Good static and dynamic standing balance/tolerance MET DISCHARGE RECOMMENDATIONS: Patient will benefit from home health PT services in order to progress mobility level using least restrictive assistive ambulatory device, assess home safety, identify additional equipment needs, and establish a functional maintenance program that will increase ability of patient to remain at home. TREATMENT CODE/TIME: NC. Thank you for the opportunity to participate in the care of this patient. Nallely Saha PT, DPT, CLT [facility] [place], [place]
[2019-10-29 10:00] LABS: Insulin 18.7 uIU/mL (<29.0)
== END 2019-10-27 13:45 | disposition home health service (06) | DRG 558 ==
LOC: ER 13:12 → MS 13:52
PROVIDERS: Internal Medicine; Admitting Provider Family Medicine; Emergency Provider Physician Assistant; PCP Nurse Practitioner Family; Visit Provider Family Medicine
DX: M62.82 Rhabdomyolysis (principal); T84.091A Other mechanical complication of internal left hip prosthesis, initial encounter; E11.649 Type 2 diabetes mellitus with hypoglycemia without coma; S29.011A Strain of muscle and tendon of front wall of thorax, initial encounter; R53.1 Weakness; R26.2 Difficulty in walking, not elsewhere classified; F17.210 Nicotine dependence, cigarettes, uncomplicated; I10 Essential (primary) hypertension; E78.5 Hyperlipidemia, unspecified; F32.9 Major depressive disorder, single episode, unspecified; Z79.4 Long term (current) use of insulin; Z91.19 Patient's noncompliance with other medical treatment and regimen; Z11.59 Encounter for screening for other viral diseases; R11.0 Nausea; W18.39XA Other fall on same level, initial encounter
CPT/HCPCS: 36415; 36416; 80048; 80053; 80061; 80076; 82550; 82962; 96360; 96361; 97110; 97140; 97162; 97166; 97530; 97535; 99222; 99232; 99239; 99285; J1650; U0003; 73502; 73700; 81003; 81015; 83036; 83525; 83735; 84443; 85025; J2405

== ENCOUNTER 2019-11-20 15:39 | Outpatient (REF) | payer MEDICAID, SELFPAY ==
[2019-11-22 14:51] LABS: Patient Race White; SARS-CoV-2 RNA Undetected (Undetected); SARS-CoV-2 Specimen Source Nasal
== END 2019-11-20 15:59 ==
LOC: NCHCN 15:39
PROVIDERS: PCP Nurse Practitioner Family; Visit Provider Nurse Practitioner Family
DX: Z20.828 Contact with and (suspected) exposure to other viral communicable diseases (principal)
CPT/HCPCS: U0003

== ENCOUNTER 2019-12-22 19:36 | Outpatient (REF) | payer MEDICAID, SELFPAY ==
[2019-12-24 10:14] LABS: HIV-1/2 Ag & Ab Screen Negative (Negative)
[2019-12-25 09:40] LABS: ALT 28 U/L (7-45); ActiTest Grade A0; ActiTest Interpretation no activity; ActiTest Score 0.15; Alpha-2-Macroglobulin 361 mg/dL (100 - 280); Apoliprotein A1 122 mg/dL (>=140); Bilirubin, Total 0.3 mg/dL (<=1.2); FibroTest Interpretation minimal fibrosis; FibroTest Score 0.38; FibroTest Stage F1-F2; GGT 27 U/L (5 - 36); Haptoglobin 192 mg/dL (30 - 200)
== END 2019-12-22 19:56 ==
LOC: NCHCN 19:36
PROVIDERS: PCP Nurse Practitioner Family; Visit Provider Family Medicine
DX: B19.20 Unspecified viral hepatitis C without hepatic coma (principal)
CPT/HCPCS: 81596; 87389

== ENCOUNTER 2020-01-15 13:54 | Outpatient (REF) | payer MEDICAID, SELFPAY ==
[2020-01-20 04:58] LABS: Patient Race White; SARS-CoV-2 RNA Undetected (Undetected); SARS-CoV-2 Specimen Source Nasal
== END 2020-01-15 14:14 ==
LOC: NCHCN 13:54
PROVIDERS: PCP Nurse Practitioner Family; Visit Provider Nurse Practitioner Family
DX: R05 Cough (principal)
CPT/HCPCS: U0003

== ENCOUNTER 2020-05-27 15:00 | Outpatient (REF) | payer MEDICAID, SELFPAY ==
[2020-05-28 12:01] LABS: COVID-19 RT-PCR UVMMC Result Negative (Negative)
== END 2020-05-27 15:01 | disposition home or self-care (01) ==
LOC: NCHCN 15:00
PROVIDERS: PCP Nurse Practitioner Family; Visit Provider Nurse Practitioner Family
DX: Z20.822 Contact with and (suspected) exposure to COVID-19 (principal)
CPT/HCPCS: U0003

== ENCOUNTER 2021-06-16 15:07 | Outpatient (REF) | payer MEDICAID, SELFPAY ==
[2021-06-16 21:02] LABS: HCT 45.3 % (36.0-46.0); HGB 14.2 g/dL (11.2-15.7); MCH 25.6 pg (27.0-33.0); MCHC 31.3 % (32.0-36.0); MCV 81.8 fL (80-95); MPV 9.9 fL (8.0-11.0); Platelet Count 259 10^3/uL (130-400); RBC 5.54 10^6/uL (3.93-5.22); RDW 14.1 % (11.7-14.6); RDW-SD 41.4 fL
[2021-06-16 22:47] LABS: ALT 18 U/L (14-59); AST 12 U/L (15-37); Albumin 3.5 g/dL (3.4-5.0); Alkaline Phosphatase 84 U/L (46-116); Anion Gap 10.9 mmol/L (3-11); BUN 19 mg/dL (7-18); Bilirubin, Total 0.3 mg/dL (0.2-1.0); CO2 26.1 mmol/L (21.0-32.0); CREATININE 0.8 mg/dL (0.55-1.02); Calcium 9.2 mg/dL (8.5-10.1); Chloride 100 mmol/L (98-107); Glucose 288 mg/dL (74-106); Potassium 4.1 mmol/L (3.5-5.1); Sodium 137 mmol/L (136-145); Total Protein 7.4 g/dL (6.4-8.2)
[2021-06-19 11:46] LABS: Hepatitis C Ab w Rflx HCV PCR Reactive (Negative)
[2021-06-21 13:33] LABS: HCV RNA Qualitative Undetected (Undetected)
== END 2021-06-16 15:08 | disposition home or self-care (01) ==
LOC: NCHCN 15:07
PROVIDERS: PCP Nurse Practitioner Family; Visit Provider Nurse Practitioner Family
DX: M00.9 Pyogenic arthritis, unspecified (principal); B19.20 Unspecified viral hepatitis C without hepatic coma; E11.65 Type 2 diabetes mellitus with hyperglycemia
CPT/HCPCS: 80053; 85027; 86803; 87522

== ENCOUNTER 2021-07-09 15:58 | Emergency (ER) | payer MEDICAID, SELFPAY ==
--- NOTE | 2021-07-09 16:15 | ED.GENADUL_ITS ---
Discharge Plan Disposition Patient Disposition: HOME Condition: Stable Discharge Details Clinical Impression: Dental infection Primary Care Provider: Mary Lou Maddox ED Provider: Radha Yang Home Meds and New Rx's Prescriptions: New penicillin V potassium 500 mg tablet 500 mg PO QID 7 Days Qty: 28 0RF Continued albuterol sulfate [Ventolin HFA] 60 PUFF HFA aerosol inhaler 2 puff PRN PRN0RF gabapentin 300 MG capsule 600 mg PO BID 0RF buprenorphine-naloxone [Suboxone] 8-2 mg Film 1 film SUBLINGUAL DAILY 0RF (DME) FreeStyle Noemi 14 Day Sensor Kit See Rx Instructions .ROUTE .MEDSUPPLY Qty: 2 0RF Rx Instructions: As directed (DME) FreeStyle Noemi 14 Day [place] Misc See Rx Instructions .ROUTE .MEDSUPPLY Qty: 1 0RF Rx Instructions: As directed metformin 500 mg Tablet 1,000 mg PO BID@0800,1700 Qty: 60 0RF (DME) FreeStyle Precision Clint Strips Strip See Rx Instructions .ROUTE .MEDSUPPLY Qty: 100 0RF Rx Instructions: For use with meter for TID AC and HS pantoprazole 40 mg Tablet,Delayed Release (Dr/Ec) 40 mg PO DAILY@0730 Qty: 30 0RF lisinopril 10 mg tablet 10 mg PO DAILY 0RF Discharge Instructions Instructions: Dental Abscess (ED) Additional Instructions: Your symptoms appear likely due to a developing dental infection but there is no obvious drainable dental abscess at this time. Alternate tylenol and motrin as needed and directed for pain. A prescription for antibiotics has been sent electronically to your pharmacy. Take this as directed until finished. Call your local dentist to schedule a follow-up appointment for re-evaluation. Return immediately to the emergency department if you develop any worsening or new concerning symptoms. Discharge Data Discharge Physician: Radha Yang Medical Decision Making 60-year-old female with a history of GERD, hypertension, hyperlipidemia, diabetes, anxiety, depression who presents for left upper dental pain for the p ast few days. Denies fever. She has poor dentition with multiple dental caries and decay throughout. Area of pain approximately tooth #12. There is surrounding mild edema and erythema but no abscess noted. Normal oropharynx. She does have mild to moderate left- sided facial swelling. No drooling, trismus, submandibular swelling. Airway intact. Patient states she has responded to penicillin in the past. She was given a dose of Pen-V K here in addition to a prescription. She is on Suboxone. She is advised to continue to alternate Tylenol and Motrin. She was given a dental follow-up list. Usual and customary return precautions given prior to discharge. Medical Records Medical records reviewed: Yes I reviewed the patient's medical records. HPI General Mode of arrival: ambulatory . Date/Time Provider Initiated Documentation: 07/09/21 16:13 . Limitations to Documentation: no limitations . Information obtained by: patient . HPI Narrative: Pt is a 60-year-old female who presents to the ED with a complaint of left upper dental pain and left-sided facial swelling for the past few days. Patient denies any injury, fever, difficulty swallowing or difficulty breathing. Related Data Home Medications Medication Instructions Recorded Confirmed albuterol sulfate 90 mcg/actuation 2 puff PRN PRN 02/20/16 10/22/19 aerosol inhaler (Ventolin HFA) gabapentin 300 mg capsule 600 mg PO BID 12/02/16 07/09/21 buprenorphine 8 mg-naloxone 2 mg 1 film SUBLINGUAL DAILY 10/22/19 07/09/21 sublingual film (Suboxone) flash glucose scanning reader #1 each 10/26/19 (FreeStyle Noemi 14 Day [place]) flash glucose sensor (FreeStyle #2 each 10/26/19 Noemi 14 Day Sensor) blood sugar diagnostic (FreeStyle #100 each 10/27/19 Precision Clint Strips) metformin 500 mg tablet 1,000 mg PO BID@0800,1700 #60 tab 10/27/19 07/09/21 pantoprazole 40 mg tablet,delayed 40 mg PO DAILY@0730 #30 tab 10/27/19 07/09/21 release lisinopril 10 mg tablet 10 mg PO DAILY 07/09/21 07/09/21 penicillin V potassium 500 mg 500 mg PO QID 7 Days #28 tab 07/09/21 tablet Previous Rx's Medication Instructions Recorded flash glucose scanning reader #1 each 10/26/19 (FreeStyle Noemi 14 Day [place]) flash glucose sensor (FreeStyle #2 each 10/26/19 Noemi 14 Day Sensor) blood sugar diagnostic (FreeStyle #100 each 10/27/19 Precision Clint Strips) metformin 500 mg tablet 1,000 mg PO BID@0800,1700 #60 tab 10/27/19 pantoprazole 40 mg tablet,delayed 40 mg PO DAILY@0730 #30 tab 10/27/19 release penicillin V potassium 500 mg 500 mg PO QID 7 Days #28 tab 07/09/21 tablet Allergies Allergy/AdvReac Type Severity Reaction Status Date / Time No Known Allergies Allergy Unverified 07/09/21 16:20 General Stated Complaint: DentalOral DIEGO: 3 Review of Systems All systems reviewed & are unremarkable except as noted in HPI and below Constitutional Constitutional: Reports as per HPI, Denies chills and Denies fever(s) Eyes Eyes: Denies blurry vision ENT Ears, Nose, Mouth, and Throat: Denies dizziness, Denies sore throat and Denies throat swelling Cardiovascular Cardiovascular: Denies chest pain and Denies dyspnea Respiratory Respiratory: Denies cough and Denies dyspnea Gastrointestinal Gastrointestinal: Denies abdominal pain, Denies diarrhea and Denies vomiting Genitourinary Genitourinary: Denies hematuria and Denies dysuria Musculoskeletal Musculoskeletal: Denies back pain and Denies numbness Integumentary/Breasts Skin/Breast: Denies lesions and Denies rash Neurologic Neurologic: Denies dizziness, Denies localized weakness and Denies numbness Allergic/Immunologic Allergic/Immunologic: Denies throat swelling PFSH All Active Problems (Updated 07/09/21 @ 16:47 by Radha Yang DO) Dental infection (Acute) GERD (gastroesophageal reflux disease) (Chronic) Prosthetic hip implant failure (Chronic) History of intravenous drug use in remission (Chronic) Depression (Chronic) Hyperlipidemia (Chronic) Hypertension (Chronic) Tobacco abuse (Chronic) Ambulatory dysfunction (Chronic) Type 2 diabetes mellitus (Chronic) Fall (Acute) Strain of right pectoralis muscle (Acute) COVID-19 ruled out by laboratory testing (Acute) Discharge planning issues (Acute) DVT prophylaxis (Acute) Diabetes mellitus type 2, insulin dependent (Acute) Diabetes (Chronic) Hypoglycemic on combination of insulin and bydureon; latest A1C 8.3 Right hip pain (Acute 12/22/13) Psoas abscess, left (Chronic) Septic left hip, status post reconstruction. Depressive disorder (Chronic) Weakness (Acute) Social History Smoking/Tobacco Use Status: Current every day Tobacco Type: cigarettes Smoking risk assessment performed?: Yes Alcohol Intake: never Drug use: Current Sobriety Substance use type: does not use Do you feel safe at home: Yes Do you feel safe in your relationship?: Yes Exam Const General: cooperative and no acute distress Orientation: alert, awake and oriented x3 [facility] Head: normal to inspection Ears: hearing grossly normal bilaterally, external ears normal and TM's normal bilaterally General nose exam: external nose normal Face images: 1. Mild to moderate left-sided facial swelling. There is no obvious erythema, crepitus, rash or lesions. Mouth: oral mucosae normal, no drooling and no trismus Teeth and gingiva: poor dentition Teeth image: 1. Tenderness to palpation with surrounding mild mucosal edema but no significant erythema or fluctuance noted. No drainage or bleeding. Throat: posterior oropharynx normal Other: Multiple missing teeth throughout. Eyes General: appearance normal, both eyes and all related structures Neck Neck: normal visual inspection, no meningeal signs, trachea midline, supple, no anterior neck swelling and No submandibular swelling Resp Effort & Inspection: normal respiratory effort and able to speak in complete sentences Cardio Rate: regular rate Skin General skin exam: no rashes or lesions noted Neuro General: patient alert, patient awake and patient oriented x3 Motor: muscle tone normal throughout Extrem General: normal to inspection and full ROM Psych Appearance: grossly normal Affect: normal affect
[2021-07-09 16:16] VITALS: BP 143/86; PULSE 78; RESP 18; TEMP 37.1; O2SAT 97
[2021-07-09] MEDS: Penicillin V POTASSIUM 500 MG TAB PO (17:03)
[2021-07-09] MEDS: Penicillin V POTASSIUM 500 MG TAB, 4 TABS/BTL PO (17:03)
== END 2021-07-09 17:09 | disposition home or self-care (01) ==
PROVIDERS: Emergency Provider Physician Assistant; PCP Nurse Practitioner Family
DX: K04.7 Periapical abscess without sinus (principal)
CPT/HCPCS: 99283

== ENCOUNTER 2022-04-05 16:38 | Emergency (ER) | payer MEDICAID, SELFPAY ==
[2022-04-05 16:44] VITALS: BP 198/82; PULSE 88; RESP 17; TEMP 36.8; O2SAT 96
--- NOTE | 2022-04-05 17:30 | DI.CT_ITS ---
Exam(s) CT PELVIC WO EXAM: CT PELVIC WO CLINICAL HISTORY: left hip and pelvis tenderness. TECHNIQUE: Imaging Protocol: Axial computed tomography images with coronal and sagittal reformatted images were created and reviewed. COMPARISON: CT ABD PELVIS WITH CONTRAST from 05/22/2013 CT PELVIC/LOWER ABD WITH CON(P) from 12/22/2013 CT PELVIC/LOWER ABD WITH CON(P) from 12/22/2013 MR MRI - LUMBAR SPINE W/WO CONT from 01/15/2014 CR XR HIP LT COMPLETE AP PELVIS from 10/22/2019 FINDINGS: Bones: The osseous structures and articular surfaces are intact. The patient has a left hip prosthe sis. No lucencies are seen in or about the orthopedic hardware. This does cause artifact on the exa mination limited in the examination. Bony alignment is satisfactory. No cellulitic or osteomyelitic changes are identified. There is no evidence of joint space narrowing or cystic degeneration seen. No lytic or sclerotic lesions are identified. Soft Tissues: There is a cystic structure adjacent to the left kidney which may represent an enlarged extrarenal pelvis. Prior examination is do show marked prominence of the left extrarenal pelvis. IMPRESSION: 1. Left hip arthroplasty. No CT evidence of hardware failure. 2. No acute fracture or dislocation. 3. Enlarged cystic structure medial to the left kidney. The patient has a history of a prior enlarge d left renal pelvis. This does show increase in size compared to prior examinations. A renal colic CT may be obtained for further evaluation. RADIATION DOSE DELIVERED: 437.07mGy.cm Total DLP 437.07mGy.cmTotal DLP 437.07mGy.cmTotal DLP DATA REPOSITORY: All CT scans at this facility are submitted to the National Radiology Data Registry (NRDR) Dose Index Registry (DIR) with the [employer] ([employer]). RADIATION OPTIMIZATION: All CT scans at this facility use at least one of these dose optimization te chniques: automated exposure control; mA and/or kV adjustment per patient size (includes targeted exa ms where dose is matched to clinical indication); or iterative reconstruction.
[2022-04-05] MEDS: oxyCODONE 5 MG TAB PO (18:01)
--- NOTE | 2022-04-05 18:20 | DI.VRAD_ITS ---
PROCEDURE INFORMATION: Exam: CT Pelvis Without Contrast; Skeletal Exam date and time: 04/05/2022 6:06 PM Age: 61 years old Clinical indication: Other: Left hip and pelvis tenderness; Prior surgery; Surgery date: 6+ months; Surgery type: Hip replacement years ago TECHNIQUE: Imaging protocol: Computed tomography of the pelvis without contrast. Exam focused on the skeleton. COMPARISON: CR XR HIP LT COMPLETE AP PELVIS 10/22/2019 8:45 AM FINDINGS: Bones/joints: Left hip arthroplasty is grossly intact. No acute fracture. No dislocation. Soft tissues: Unremarkable. Severely enlarged left extrarenal pelvis IMPRESSION: No acute findings. Left hip arthroplasty grossly intact. No CT evidence for fracture or loosening Severely enlarged left extrarenal pelvis. No definite ureteral dilatation. Comparison with prior images would be helpful Dictated and Authenticated by: Tigre Sims MD. Ordering:ABHIJEET Cervantes MD
--- NOTE | 2022-04-08 09:30 | W.ED.GENAD ---
Discharge Plan Disposition Patient Disposition: Home Condition: Stable Discharge Details Clinical Impression: Back pain Primary Care Provider: Mary Lou Maddox ED Provider: Helen Peterson Home Meds and New Rx's Prescriptions: Continued ondansetron HCl 4 mg tablet 4 mg PO Q8H nicotine 14 mg/24 hr patch 24 hour 1 patch transdermal DAILY albuterol sulfate [ProAir HFA] 90 mcg/actuation HFA aerosol inhaler 2 puff inhalation Q6H PRN fluticasone propionate 50 mcg/actuation spray,suspension 2 spray intranasal DAILY Rx Instructions: administer into each nostril gabapentin 300 MG capsule 600 mg PO TID buprenorphine-naloxone [Suboxone] 8-2 mg Film 2 film SUBLINGUAL DAILY (DME) FreeStyle Noemi 14 Day Sensor Kit See Rx Instructions .ROUTE .MEDSUPPLY Qty: 2 0RF Rx Instructions: As directed (DME) FreeStyle Noemi 14 Day [place] Misc See Rx Instructions .ROUTE .MEDSUPPLY Qty: 1 0RF Rx Instructions: As directed metformin 500 mg Tablet 1,000 mg PO BID@0800,1700 Qty: 60 0RF (DME) FreeStyle Precision [place] Strips Strip See Rx Instructions .ROUTE .MEDSUPPLY Qty: 100 0RF Rx Instructions: For use with meter for TID AC and HS pantoprazole 40 mg Tablet,Delayed Release (Dr/Ec) 40 mg PO DAILY@0730 Qty: 30 0RF lisinopril 10 mg tablet 10 mg PO DAILY Discharge Instructions Instructions: Back Pain (ED) Additional Instructions: Please take Tylenol as needed for pain Have given you several tablets of oxycodone, take this sparingly as it is addictive and can make you lightheaded and constipated Do not drive your vehicle for 8 hours after taking this medication Please follow-up with your primary care physician, your kidney will need to be reevaluated at your doctor's discretion, please have them review your films, I do not think is contributing to your symptoms today Referrals: Mary Lou Maddox [Primary Care Provider] - Discharge Data Discharge Date/Time-TO BE ENTERED AT DEPARTURE: 04/05/22 21:09 Medical Decision Making This 61-year-old female with history of anxiety, depression, diabetes presents with report of left hip pain after a fall CT pelvis does not show evidence of acute abnormality, specifically no evidence of hip fracture Patient is ambulatory with antalgic although steady gait with a walker She feels comfortable discharge home at this time She is encouraged to follow-up with her primary care physician Return precautions reviewed and patient expressed understanding HPI General Date/Time Provider Initiated Documentation: 04/05/22 17:34. HPI Narrative: This 61-year-old female presents with report of pain to her left hip. She states she slipped and fell yesterday. She denies any head injury or any additional complaints at this time. She has been able to ambulate with pain using her walker at home Related Data Home Medications Medication Instructions Recorded Confirmed gabapentin 300 mg capsule 600 mg PO TID 12/02/16 04/05/22 buprenorphine 8 mg-naloxone 2 mg 2 film sublingual DAILY 10/22/19 04/05/22 sublingual film (Suboxone) flash glucose scanning reader #1 ea 10/26/19 04/05/22 (FreeStyle Noemi 14 Day [place]) flash glucose sensor (FreeStyle #2 ea 10/26/19 04/05/22 Noemi 14 Day Sensor kit) blood sugar diagnostic (FreeStyle #100 ea 10/27/19 04/05/22 Precision Clint Strips) metformin 500 mg tablet 1,000 mg PO BID@0800,1700 #60 tabs 10/27/19 04/05/22 pantoprazole 40 mg tablet,delayed 40 mg PO DAILY@0730 #30 tabs 10/27/19 04/05/22 release lisinopril 10 mg tablet 10 mg PO DAILY 07/09/21 04/05/22 albuterol sulfate 90 mcg/actuation 2 puff inhalation Q6H PRN 08/25/21 04/05/22 aerosol inhaler (ProAir HFA) fluticasone propionate 50 2 spray intranasal DAILY 08/25/21 04/05/22 mcg/actuation nasal spray,suspension nicotine 14 mg/24 hr daily 1 patch transdermal DAILY 08/25/21 04/05/22 transdermal patch ondansetron HCl 4 mg tablet 4 mg PO Q8H 08/25/21 04/05/22 Previous Rx's Medication Instructions Recorded flash glucose scanning reader #1 ea 10/26/19 (FreeStyle Noemi 14 Day [place]) flash glucose sensor (FreeStyle #2 ea 10/26/19 Noemi 14 Day Sensor kit) blood sugar diagnostic (FreeStyle #100 ea 10/27/19 Precision Clint Strips) metformin 500 mg tablet 1,000 mg PO BID@0800,1700 #60 tabs 10/27/19 pantoprazole 40 mg tablet,delayed 40 mg PO DAILY@0730 #30 tabs 10/27/19 release Allergies Allergy/AdvReac Type Severity Reaction Status Date / Time No Known Allergies Allergy Unverified 04/05/22 16:51 General Stated Complaint: Orthopedic DIEGO: 4 PFSH All Active Problems (Updated 04/05/22 @ 20:20 by SOLEDAD Martins) Back pain (Acute) Pilonidal cyst (Acute) Tobacco abuse (Chronic) Type 2 diabetes mellitus (Chronic) Medical History (Updated 04/05/22 @ 20:20 by SOLEDAD Martins) Ambulatory dysfunction COVID-19 ruled out by laboratory testing Depressive disorder Diabetes Hypoglycemic on combination of insulin and bydureon; latest A1C 8.3 Discharge planning issues DVT prophylaxis Fall GERD (gastroesophageal reflux disease) History of intravenous drug use in remission Hyperlipidemia Hypertension Hypoglycemia Prosthetic hip implant failure Psoas abscess, left Septic left hip, status post reconstruction. Right hip pain (12/22/13) Strain of right pectoralis muscle Weakness Social History Smoking/Tobacco Use Status: Current every day Tobacco Type: cigarettes Smoking risk assessment performed?: Yes Alcohol Intake: never Drug use: Current Sobriety Substance use type: does not use Do you feel safe at home: Yes Do you feel safe in your relationship?: Yes Exam Narrative Exam Narrative: 59-year-old female who appears chronically ill has no visible signs of trauma to her head or thorax, specifically no tenderness or midline cervical spine tenderness, pupils equal round reactive to light and accommodation No tenderness to abdomen or CVA region we will Tenderness with palpation over left hip and pelvic region, no visible signs of trauma, neurovascularly intact, no tenderness to bilateral lower extremities GCS 15 Course Vital Signs Vital signs: Vital Signs Temperature 36.8 C 04/05/22 16:44 Pulse 88 04/05/22 16:44 Respiratory Rate 17 04/05/22 16:44 Blood Pressure 198/82 H 04/05/22 16:44 Pulse Oximetry 96 04/05/22 16:44 Temperature 36.8 C 04/05/22 16:44 Temperature Source Oral 04/05/22 16:44 Pulse 88 04/05/22 16:44 Respiratory Rate 17 04/05/22 16:44 Respiratory Effort 04/05/22 16:51 Blood Pressure 198/82 H 04/05/22 16:44 Blood Pressure Position Sitting 04/05/22 16:44 Pulse Oximetry 96 04/05/22 16:44 Oxygen Delivery Method Room Air 04/05/22 16:44 Oxygen Flow Rate 0 04/05/22 16:44 Pain Level 4 04/05/22 21:16
== END 2022-04-05 21:09 | disposition home or self-care (01) ==
PROVIDERS: Emergency Provider Physician Assistant; PCP Nurse Practitioner Family
DX: M25.552 Pain in left hip (principal); M54.9 Dorsalgia, unspecified; W01.0XXA Fall on same level from slipping, tripping and stumbling without subsequent striking against object, initial encounter
CPT/HCPCS: 99284; 72192